=== PATIENT | male | born 1940 | race Caucasian/White ===

== ENCOUNTER → 2016-05-30 | Outpatient (CLI) | payer OTHER ==
[2016-05-30 08:01] LABS: Basophils # (auto) 0 uL; Basophils % (auto) 0.3 % (0.0-2.0); Eosinophils # (auto) 0.2 uL; Eosinophils % (auto) 2.3 % (0.0-7.0); Hematocrit 43.6 % (41.0-53.0); Lymphocytes # (auto) 1.4 uL; Lymphocytes % (auto) 19.1 % (10.0-50.0); Mean Corpuscular Hemoglobin 28.3 pg (28.0-32.0); Mean Corpuscular Hgb Conc. 32.1 g/dL (32.0-36.0); Mean Corpuscular Volume 88.3 fL (80.0-100.0); Mean Platelet Volume 8.3 fL (7.4-10.4); Monocytes # (auto) 0.5 uL; Monocytes % (auto) 7.1 % (0.0-12.0); Neutrophils # (auto) 5.1 uL; Neutrophils % (auto) 71.2 % (37.0-80.0); Platelet Count (auto) 278 10^3/uL (140-450); Red Cell Distribution Width 13.2 % (11.6-16.0); White Blood Cell 7.2 10^3/uL (4.4-10.8)
[2016-05-30 08:16] LABS: Urine Bilirubin Negative (Negative); Urine Blood Negative /uL (Negative); Urine Color Yellow (Yellow); Urine Glucose Normal (Normal); Urine Ketone Negative (Negative); Urine Mucus FEW (None Seen); Urine Nitrite Negative (Negative); Urine RBC 1 /hpf (0 - 3); Urine Urobilinogen Normal (Negative); Urine pH 5.5 (5.0-8.0)
[2016-05-30 08:28] LABS: Albumin 3.4 g/dL (3.4-5.0); BUN/Creatinine Ratio 17.5; Bilirubin, Total 0.3 mg/dL (0.2-1.0); Calcium 8.6 mg/dL (8.5-10.1); Potassium 4.5 mmol/L (3.5-5.1); Total Protein 6.8 g/dL (6.4-8.2)
== END | disposition home or self-care (01) ==
LOC: LAB 07:20
PROVIDERS: ATTEND Internal Medicine
DX: E11.9 Type 2 diabetes mellitus without complications (principal); I10 Essential (primary) hypertension; Z00.00 Encounter for general adult medical examination without abnormal findings; E55.9 Vitamin D deficiency, unspecified
CPT/HCPCS: 36415; 80053; 80061; 81001; 82270; 82306; 84153; 85025

== ENCOUNTER → 2016-08-09 | Outpatient (CLI) | payer OTHER ==
[2016-08-09 07:45] LABS: Urine RBC None Seen /hpf (0 - 3)
[2016-08-09 08:21] LABS: Urine Bilirubin Negative (Negative); Urine Blood Negative /uL (Negative); Urine Color Yellow (Yellow); Urine Glucose Normal (Normal); Urine Ketone Negative (Negative); Urine Nitrite Negative (Negative); Urine Squamous Epithelial Cell FEW /hpf (<5); Urine Urobilinogen Normal (Negative); Urine pH 5.5 (5.0-8.0)
== END | disposition home or self-care (01) ==
LOC: LAB 06:39
PROVIDERS: ATTEND Internal Medicine
DX: N39.0 Urinary tract infection, site not specified (principal); E11.9 Type 2 diabetes mellitus without complications
CPT/HCPCS: 36415; 81001; 82043; 83036; 84153; 84154; 85652; 86141

== ENCOUNTER → 2016-09-06 | Outpatient (CLI) | payer OTHER | END | disposition home or self-care (01) | LOC: LAB 10:51 | DX: K75.9 Inflammatory liver disease, unspecified (principal); M06.9 Rheumatoid arthritis, unspecified; I10 Essential (primary) hypertension; E13.9 Other specified diabetes mellitus without complications | CPT/HCPCS: 36415; 85652; 86141; 86200; 86431; 86704; 86706; 86708; 86803; 86812; 87340 ==

== ENCOUNTER → 2017-03-15 | Outpatient (CLI) | payer OTHER ==
[2017-03-15 11:06] LABS: Basophils # (auto) 0.1 uL; Basophils % (auto) 0.5 % (0.0-2.0); Eosinophils # (auto) 0.1 uL; Eosinophils % (auto) 0.6 % (0.0-7.0); Hematocrit 37.7 % (41.0-53.0); Hemoglobin 13.1 g/dL (13.5-17.5); Lymphocytes # (auto) 0.8 uL; Lymphocytes % (auto) 8.4 % (10.0-50.0); Mean Corpuscular Hemoglobin 32.8 pg (28.0-32.0); Mean Corpuscular Hgb Conc. 34.7 g/dL (32.0-36.0); Mean Corpuscular Volume 94.7 fL (80.0-100.0); Monocytes # (auto) 0.6 uL; Monocytes % (auto) 6.7 % (0.0-12.0); Neutrophils % (auto) 83.8 % (37.0-80.0); Platelet Count (auto) 241 10^3/uL (140-450); Red Cell Distribution Width 13.8 % (11.8-14.3); White Blood Cell 9.6 10^3/uL (4.4-10.8)
[2017-03-15 11:37] LABS: Albumin 3.4 g/dL (3.4-5.0); BUN/Creatinine Ratio 15.9; Bilirubin, Total 0.5 mg/dL (0.2-1.0); Calcium 8.5 mg/dL (8.5-10.1); Potassium 4.1 mmol/L (3.5-5.1); Total Protein 6.3 g/dL (6.4-8.2)
[2017-03-16 07:06] LABS: Prostate Specific Antigen 10.6 ng/mL (0.0-4.0)
[2017-03-16 08:06] LABS: PSA Free 1.7 ng/mL
== END | disposition home or self-care (01) ==
LOC: LAB 09:58
PROVIDERS: ATTEND Internal Medicine
DX: I10 Essential (primary) hypertension (principal); E11.9 Type 2 diabetes mellitus without complications
CPT/HCPCS: 36415; 80053; 83036; 84153; 84154; 85025; 85652; 86141

== ENCOUNTER → 2017-06-21 | Outpatient (CLI) | payer OTHER | END | disposition home or self-care (01) | LOC: LAB 07:32 | PROVIDERS: ATTEND Physician Assistant | DX: N40.1 Benign prostatic hyperplasia with lower urinary tract symptoms (principal) | CPT/HCPCS: 84153 ==

== ENCOUNTER → 2017-09-20 | Outpatient (CLI) | payer OTHER ==
[2017-09-20 08:03] LABS: Basophils # (auto) 0 uL; Basophils % (auto) 0.7 % (0.0-2.0); Eosinophils # (auto) 0.3 uL; Eosinophils % (auto) 4.9 % (0.0-7.0); Hematocrit 41.3 % (41.0-53.0); Hemoglobin 13.8 g/dL (13.5-17.5); Lymphocytes # (auto) 1.1 uL; Lymphocytes % (auto) 18.8 % (10.0-50.0); Mean Corpuscular Hemoglobin 29.8 pg (28.0-32.0); Mean Corpuscular Hgb Conc. 33.3 g/dL (32.0-36.0); Mean Corpuscular Volume 89.3 fL (80.0-100.0); Monocytes # (auto) 0.5 uL; Monocytes % (auto) 8.1 % (0.0-12.0); Neutrophils # (auto) 4.1 uL; Neutrophils % (auto) 67.5 % (37.0-80.0); Platelet Count (auto) 244 10^3/uL (140-450); Red Blood Cells 4.63 10^6/uL (4.5-5.90)
[2017-09-20 08:31] LABS: Albumin 3.5 g/dL (3.4-5.0); Bilirubin, Total 0.4 mg/dL (0.2-1.0); Calcium 8.7 mg/dL (8.5-10.1); Total Protein 6.5 g/dL (6.4-8.2)
== END | disposition home or self-care (01) ==
LOC: LAB 07:41
PROVIDERS: ATTEND Physician Assistant
DX: I10 Essential (primary) hypertension (principal); E11.65 Type 2 diabetes mellitus with hyperglycemia; E78.5 Hyperlipidemia, unspecified; M06.9 Rheumatoid arthritis, unspecified; R97.20 Elevated prostate specific antigen [PSA]
CPT/HCPCS: 36415; 80053; 80061; 83036; 84153; 85025

== ENCOUNTER → 2017-09-27 | Outpatient (CLI) | payer OTHER | END | disposition home or self-care (01) | LOC: LAB 07:05 | PROVIDERS: ATTEND Physician Assistant | DX: R93.8 Abnormal findings on diagnostic imaging of other specified body structures (principal); I10 Essential (primary) hypertension; E78.5 Hyperlipidemia, unspecified; E11.65 Type 2 diabetes mellitus with hyperglycemia | CPT/HCPCS: 36415; 82565; 84520 ==

== ENCOUNTER → 2017-12-27 | Outpatient (CLI) | payer OTHER ==
[~2017-12-27] VITALS: Ht 167.6 cm; Wt 78.0 kg
[~2017-12-27] MED LIST: ADENOSINE 66 MG in GIVE UN-DILUTED 0 ML IV STA
[2017-12-27 10:16] VITALS: BP 137/74
== END | disposition home or self-care (01) ==
LOC: XY 08:37
PROVIDERS: ATTEND Internal Medicine Cardiovascular Disease
DX: I25.6 Silent myocardial ischemia (principal)
CPT/HCPCS: 78452; 93017; A9500; J0153

== ENCOUNTER → 2017-12-28 | Outpatient (CLI) | payer OTHER | END | disposition home or self-care (01) | LOC: XYW 08:23 | PROVIDERS: ATTEND Internal Medicine Cardiovascular Disease | DX: I35.8 Other nonrheumatic aortic valve disorders (principal); I11.9 Hypertensive heart disease without heart failure; E11.9 Type 2 diabetes mellitus without complications; E78.5 Hyperlipidemia, unspecified; M06.9 Rheumatoid arthritis, unspecified | CPT/HCPCS: 93306 ==

== ENCOUNTER 2018-01-18 06:48 | Day surgery (SDC) | payer OTHER ==
[2018-01-15 12:05] LABS: Urine Bacteria NONE SEEN /hpf (None Seen); Urine Blood Negative /uL (Negative); Urine Mucus FEW (None Seen); Urine Specific Gravity 1.031 (1.001-1.035); Urine WBC 1 /hpf (0 - 3)
[2018-01-15 12:18] LABS: Albumin 3.5 g/dL (3.4-5.0); BUN/Creatinine Ratio 17.1; Bilirubin, Total 0.6 mg/dL (0.2-1.0); Calcium 8.5 mg/dL (8.5-10.1); Potassium 3.4 mmol/L (3.5-5.1); Total Protein 6.6 g/dL (6.4-8.2)
[2018-01-15 12:25] LABS: Basophils # (auto) 0 uL; Basophils % (auto) 0.7 % (0.0-2.0); Eosinophils # (auto) 0.2 uL; Eosinophils % (auto) 3.5 % (0.0-7.0); Hematocrit 41.8 % (41.0-53.0); Hemoglobin 14.1 g/dL (13.5-17.5); Lymphocytes % (auto) 16.6 % (10.0-50.0); Mean Corpuscular Hemoglobin 29.6 pg (28.0-32.0); Mean Corpuscular Hgb Conc. 33.7 g/dL (32.0-36.0); Mean Corpuscular Volume 87.9 fL (80.0-100.0); Monocytes # (auto) 0.5 uL; Monocytes % (auto) 7.8 % (0.0-12.0); Neutrophils # (auto) 4.2 uL; Neutrophils % (auto) 71.4 % (37.0-80.0); Nucleated Red Blood Cells % 0.1 %; Platelet Count (auto) 218 10^3/uL (140-450); Red Blood Cells 4.75 10^6/uL (4.5-5.90); Red Cell Distribution Width 13.6 % (11.8-14.3); White Blood Cell 5.8 10^3/uL (4.4-10.8)
[2018-01-15 12:54] LABS: INR 0.91 (0.9-1.15); Partial Thromboplastin Time 27.9 sec (23.78-33.04); Prothrombin Time 9.8 sec (9.27-12.13)
[~2018-01-18] VITALS: Ht 167.6 cm; Wt 80.3 kg
[~2018-01-18 06:48] MED LIST changes: -ADENOSINE 66 MG in GIVE UN-DILUTED 0 ML IV STA; +AMLO10TA12 PO; +ASPI81TA27 PO; +ATOR20TA50 PO; +GLIP-115 PO; +LISI10TA6 PO; +METF-370 PO; +TAMS0.4C36 PO
[2018-01-18] MEDS ORDERED: LIDOCAINE 1% (LOCAL ANESTH.) PF 5ml SDV ONE (07:37)
[2018-01-18] MEDS ORDERED: MIDAZOLAM HCL 1MG/1ML-2 ML VIAL ONE (07:39)
[2018-01-18] MEDS ORDERED: PROPOFOL 10 MG/ML 20 ML IV ONE (07:40)
[2018-01-18] MEDS ORDERED: CIPROFLOXACIN 400MG/200ML 200 ML IV ONE (08:51)
[2018-01-18] MEDS ORDERED: fentaNYL CITRATE 100 MCG/2 ML VL ONE (09:01)
[2018-01-18] MEDS ORDERED: ACCU-CHEK COMFORT CURVE STRIP VI ONE (09:30)
[2018-01-18] MEDS ORDERED: HYDROmorphone HCL 2 MG/ML VL IV PRN (09:30)
[2018-01-18] MEDS ORDERED: ONDANSETRON HCL 4 MG/2 ML VIAL IV ONE (09:30)
[2018-01-18] MEDS ORDERED: NALOXONE HCL 0.4 MG/ML VIAL IV PRN (09:30)
[2018-01-18 09:49] VITALS: BP 126/74
== END 2018-01-18 09:55 | disposition home or self-care (01) ==
LOC: SUR 06:48
PROVIDERS: ATTEND Urology
DX: R97.20 Elevated prostate specific antigen [PSA] (principal); N40.1 Benign prostatic hyperplasia with lower urinary tract symptoms; E78.00 Pure hypercholesterolemia, unspecified; M19.90 Unspecified osteoarthritis, unspecified site; I11.0 Hypertensive heart disease with heart failure; Z79.82 Long term (current) use of aspirin; Z79.84 Long term (current) use of oral hypoglycemic drugs; Z79.899 Other long term (current) drug therapy; Z98.890 Other specified postprocedural states
CPT/HCPCS: 36415; 55706; 80053; 81001; 82962; 85025; 85610; 85730; J0744; J2250; J2704; J3010

== ENCOUNTER → 2018-06-26 | Outpatient (CLI) | payer OTHER ==
[2018-06-26 07:28] LABS: Urine WBC None Seen /hpf (0 - 3)
[2018-06-26 07:41] LABS: Basophils # (auto) 0 uL; Basophils % (auto) 0.6 % (0.0-2.0); Eosinophils # (auto) 0.2 uL; Eosinophils % (auto) 3.1 % (0.0-7.0); Hematocrit 40.9 % (41.0-53.0); Lymphocytes # (auto) 1.2 uL; Lymphocytes % (auto) 21.2 % (10.0-50.0); Mean Corpuscular Hemoglobin 30.1 pg (28.0-32.0); Mean Corpuscular Hgb Conc. 34.2 g/dL (32.0-36.0); Monocytes # (auto) 0.5 uL; Monocytes % (auto) 8.7 % (0.0-12.0); Neutrophils # (auto) 3.9 uL; Neutrophils % (auto) 66.4 % (37.0-80.0); Nucleated Red Blood Cells % 0.1 %; Platelet Count (auto) 200 10^3/uL (140-450); Red Blood Cells 4.65 10^6/uL (4.5-5.90); Red Cell Distribution Width 13.5 % (11.8-14.3); White Blood Cell 5.8 10^3/uL (4.4-10.8)
[2018-06-26 07:54] LABS: Urine Bacteria NONE SEEN /hpf (None Seen); Urine Blood Negative /uL (Negative); Urine Specific Gravity 1.021 (1.001-1.035)
[2018-06-26 08:22] LABS: Potassium 4.6 mmol/L (3.5-5.1)
[2018-06-26 08:31] LABS: Albumin 3.3 g/dL (3.4-5.0); BUN/Creatinine Ratio 17.1; Bilirubin, Total 0.4 mg/dL (0.2-1.0); Calcium 8.4 mg/dL (8.5-10.1); Total Protein 6.2 g/dL (6.4-8.2)
== END | disposition home or self-care (01) ==
LOC: LAB 07:15
PROVIDERS: ATTEND Physician Assistant
DX: Z12.5 Encounter for screening for malignant neoplasm of prostate (principal); E78.5 Hyperlipidemia, unspecified; I10 Essential (primary) hypertension; E11.8 Type 2 diabetes mellitus with unspecified complications; D64.9 Anemia, unspecified
CPT/HCPCS: 36415; 80053; 80061; 81001; 83036; 84153; 84154; 85025

== ENCOUNTER → 2019-04-08 | Outpatient (CLI) | payer OTHER ==
[~2019-04-08] MED LIST changes: -AMLO10TA12 PO; +AMLO10TA13 PO; +ASPI-404 PO; -ASPI81TA27 PO; -GLIP-115 PO; +GLIP5TAB12 PO
[2019-04-08 12:01] LABS: Urine Bacteria NONE SEEN /hpf (None Seen); Urine Blood Negative /uL (Negative); Urine Mucus FEW (None Seen); Urine Specific Gravity 1.019 (1.001-1.035); Urine WBC 1 /hpf (0 - 3)
== END | disposition home or self-care (01) ==
LOC: LAB 10:35
PROVIDERS: ATTEND Nurse Practitioner Family
DX: N39.0 Urinary tract infection, site not specified (principal)
CPT/HCPCS: 81001; 87086

== ENCOUNTER 2019-04-28 06:59 | Emergency (ER) | payer OTHER ==
[~2019-04-28] VITALS: Ht 167.6 cm; Wt 81.6 kg
[2019-04-28 08:15] LABS: Basophils # (auto) 0 uL; Basophils % (auto) 0.7 % (0.0-2.0); Eosinophils # (auto) 0.2 uL; Eosinophils % (auto) 3.3 % (0.0-7.0); Hematocrit 36.5 % (41.0-53.0); Hemoglobin 12.6 g/dL (13.5-17.5); Lymphocytes # (auto) 0.8 uL; Lymphocytes % (auto) 12.3 % (10.0-50.0); Mean Corpuscular Hemoglobin 30.2 pg (28.0-32.0); Mean Corpuscular Hgb Conc. 34.5 g/dL (32.0-36.0); Mean Corpuscular Volume 87.7 fL (80.0-100.0); Monocytes # (auto) 0.5 uL; Monocytes % (auto) 8.1 % (0.0-12.0); Neutrophils # (auto) 4.9 uL; Neutrophils % (auto) 75.6 % (37.0-80.0); Platelet Count (auto) 212 10^3/uL (140-450); Red Blood Cells 4.16 10^6/uL (4.5-5.90); Red Cell Distribution Width 13.5 % (11.8-14.3); White Blood Cell 6.5 10^3/uL (4.4-10.8)
[2019-04-28 08:17] LABS: Urine Bacteria NONE SEEN /hpf (None Seen); Urine Blood Negative /uL (Negative); Urine Specific Gravity 1.009 (1.001-1.035); Urine WBC 2 /hpf (0 - 3)
[2019-04-28 08:33] LABS: Alanine Aminotransferase 27 U/L (16-61); Albumin 3.1 g/dL (3.4-5.0); Anion Gap 11 (5-15); Aspartate Aminotransferase 17 U/L (15-37); BUN/Creatinine Ratio 13.4; Blood Urea Nitrogen 20 mg/dL (7-18); Calcium 8.4 mg/dL (8.5-10.1); Carbon Dioxide 24 mmol/L (21-32); Chloride 111 mmol/L (98-107); GFR African American 59 mL/min; GFR Non-African American 49 mL/min; Glucose 173 mg/dL (74-106); Potassium 3.2 mmol/L (3.5-5.1); Sodium 146 mmol/L (136-145)
[2019-04-28 08:38] LABS: Alkaline Phosphatase 91 U/L (45-117); Bilirubin, Total 0.4 mg/dL (0.2-1.0); Total Protein 6.4 g/dL (6.4-8.2)
[2019-04-28] MEDS ORDERED: POTASSIUM EFFERVESENT TAB 25 MEQ PO ONE (09:30)
[2019-04-28] MEDS ORDERED: FUROSEMIDE 20 MG TAB PO ONE (09:30)
[2019-04-28 09:38] VITALS: BP 154/70
== END 2019-04-28 09:33 | disposition home or self-care (01) ==
LOC: ER 06:59
DX: E11.9 Type 2 diabetes mellitus without complications (principal); I10 Essential (primary) hypertension; E87.6 Hypokalemia; M79.89 Other specified soft tissue disorders
CPT/HCPCS: 36415; 71045; 80053; 81001; 83880; 84484; 85025

== ENCOUNTER → 2019-06-20 | Outpatient (CLI) | payer OTHER ==
[~2019-06-20] MED LIST changes: -AMLO10TA13 PO; -ASPI-404 PO; +FINA5TAB4 PO; +GLIP10TA9 PO; -GLIP5TAB12 PO; +MET25T PO; -TAMS0.4C36 PO
[2019-06-20 09:06] LABS: Urine Bacteria FEW /hpf (None Seen); Urine Blood Negative /uL (Negative); Urine Mucus FEW (None Seen); Urine Specific Gravity 1.012 (1.001-1.035); Urine WBC 8 /hpf (0 - 3)
== END | disposition home or self-care (01) ==
LOC: LAB 08:39
PROVIDERS: ATTEND Internal Medicine
DX: N39.0 Urinary tract infection, site not specified (principal)
CPT/HCPCS: 81001; 87086

== ENCOUNTER 2019-07-03 06:17 | Inpatient (IN) | payer OTHER ==
[2019-07-01 10:53] LABS: Basophils # (auto) 0 10 ^3/uL (0-0.2); Basophils % (auto) 0.9 % (0.0-2.0); Eosinophils # (auto) 0.2 10 ^3/uL (0-0.8); Eosinophils % (auto) 4.1 % (0.0-7.0); Hematocrit 33.5 % (41.0-53.0); Hemoglobin 11.6 g/dL (13.5-17.5); Lymphocytes # (auto) 0.9 10 ^3/uL (0.4-5.4); Lymphocytes % (auto) 17.7 % (10.0-50.0); Mean Corpuscular Hemoglobin 30.1 pg (28.0-32.0); Mean Corpuscular Hgb Conc. 34.5 g/dL (32.0-36.0); Mean Corpuscular Volume 87.3 fL (80.0-100.0); Monocytes # (auto) 0.4 10 ^3/uL (0-1.3); Monocytes % (auto) 7.5 % (0.0-12.0); Neutrophils # (auto) 3.5 10 ^3/uL (1.6-8.6); Neutrophils % (auto) 69.8 % (37.0-80.0); Platelet Count (auto) 228 10^3/uL (140-450); Red Blood Cells 3.84 10^6/uL (4.5-5.90); Red Cell Distribution Width 14.2 % (11.8-14.3); White Blood Cell 5.1 10^3/uL (4.4-10.8)
[2019-07-01 11:04] LABS: Albumin 2.9 g/dL (3.4-5.0); Calcium 8.5 mg/dL (8.5-10.1)
[2019-07-01 11:08] LABS: BUN/Creatinine Ratio 15.1; Bilirubin, Total 0.2 mg/dL (0.2-1.0); Total Protein 6.3 g/dL (6.4-8.2)
[2019-07-01 11:10] LABS: INR 0.97 (0.9-1.15); Partial Thromboplastin Time 26.5 sec (23.64-32.05)
[2019-07-01 12:45] LABS: Urine Bacteria MANY /hpf (None Seen); Urine Blood 1+ /uL (Negative); Urine Mucus FEW (None Seen); Urine Specific Gravity 1.018 (1.001-1.035); Urine WBC 162 /hpf (0 - 3); Urine WBC Clumps PRESENT /hpf (None Seen)
[~2019-07-03] VITALS: Ht 167.6 cm; Wt 70.8 kg
[2019-07-03] VITALS (44 sets, daily range): BP systolic 18–177; BP diastolic 8–74
[2019-07-03] MEDS ORDERED: NEOMYCIN-BACITRACIN-POLYM 15GM TOP OINT TOP ONE (06:22)
[2019-07-03] MEDS ORDERED: PAPAVERINE HCL 60 MG/2 ML 2ML VIAL ONE ×2 (06:22)
[2019-07-03] MEDS ORDERED: HEPARIN SODIUM (PORCINE) 5000 UNITS/ML 1ML VIAL ONE (06:22)
[2019-07-03] MEDS ORDERED: NITROGLYCERIN 50MG/250ML 250 ML IV ONE (06:24)
[2019-07-03] MEDS ORDERED: VANCOMYCIN HCL 1000 MG VL ONE ×2 (06:24→12:41)
[2019-07-03] MEDS ORDERED: HEPARIN 1,000 UNITS/ml 1ML VIAL ONE ×2 (06:25→09:22)
[2019-07-03] MEDS ORDERED: TRANEXAMIC ACID 1,000 mg/10ml INJ VIAL IV ONE (07:00)
[2019-07-03] MEDS ORDERED: AMINOCAPROIC ACID 10 GM in SODIUM CHL 0.9% 100 ML IV ONE (07:00)
[2019-07-03] MEDS ORDERED: TRANEXAMIC ACID 1,000 MG in SODIUM CHL 0.9% 100 ML IV ONE (07:00)
[2019-07-03] MEDS ORDERED: NOREPINEPHRINE 8 MG/250ML KIT 250 ML IV ONE (07:00)
[2019-07-03] MEDS ORDERED: PHENYLEPHRINE INJ 20 MG in SODIUM CHL 0.9% 250 ML IV ONE (07:00)
[2019-07-03] MEDS ORDERED: HEPARIN 30000 UNITS in SODIUM CHLORIDE 0.9% 1000 ML IV ONE (07:00)
[2019-07-03] MEDS ORDERED: InsuLIN R (HUMAN) 100 UNITS in SODIUM CHL 0.9% 99 ML IV ONE (07:00)
[2019-07-03] MEDS ORDERED: AMINOCAPROIC ACID 5 GM in SODIUM CHL 0.9% 250 ML IV ONE (07:00)
[2019-07-03] MEDS ORDERED: EPINEPHrine HCL 4 MG in D5W 5% 250 ML IV ONE (07:00)
[2019-07-03] MEDS ORDERED: ROCURONIUM 10MG/ML 10ML VIAL IV ONE (07:15)
[2019-07-03] MEDS ORDERED: PROPOFOL 10 MG/ML 20 ML IV ONE ×2 (07:15→09:22)
[2019-07-03] MEDS ORDERED: PHENYLEPHRINE HCL 10 MG/ML VL ONE (07:15)
[2019-07-03] MEDS ORDERED: BACITRACIN INJ 50000 UNIT VIAL ONE ×2 (09:19→10:35)
[2019-07-03] MEDS ORDERED: fentaNYL CITRATE 100 MCG/2 ML VL ONE ×2 (09:20→13:16)
[2019-07-03] MEDS ORDERED: fentaNYL CITRATE 5 ML ONE (09:26)
[2019-07-03] MEDS ORDERED: ALBUMIN 25% 300 ML IV ONE (09:36)
[2019-07-03] MEDS ORDERED: MANNITOL 20 % (20GM/100ML) 500 ML IV ONE (09:36)
[2019-07-03] MEDS ORDERED: PLASMA-LYTE A pH7.4 4,000 ML INJ ONE (09:36)
[2019-07-03] MEDS ORDERED: PROTAMINE SULFATE 250 MG/25 ML VL IV ONE (12:41)
[2019-07-03 13:27] LABS: Basophils # (auto) 0 10 ^3/uL (0-0.2); Basophils % (auto) 0.3 % (0.0-2.0); Eosinophils # (auto) 0.1 10 ^3/uL (0-0.8); Eosinophils % (auto) 1.1 % (0.0-7.0); Hematocrit 26.2 % (41.0-53.0); Hemoglobin 8.9 g/dL (13.5-17.5); Lymphocytes # (auto) 0.8 10 ^3/uL (0.4-5.4); Lymphocytes % (auto) 6.8 % (10.0-50.0); Mean Corpuscular Hemoglobin 29.5 pg (28.0-32.0); Mean Corpuscular Volume 86.8 fL (80.0-100.0); Monocytes # (auto) 0.3 10 ^3/uL (0-1.3); Monocytes % (auto) 2.5 % (0.0-12.0); Neutrophils # (auto) 9.9 10 ^3/uL (1.6-8.6); Neutrophils % (auto) 89.3 % (37.0-80.0); Platelet Count (auto) 159 10^3/uL (140-450); Red Blood Cells 3.02 10^6/uL (4.5-5.90); Red Cell Distribution Width 14.3 % (11.8-14.3); White Blood Cell 11.1 10^3/uL (4.4-10.8)
[2019-07-03 13:44] LABS: Albumin 3.3 g/dL (3.4-5.0); BUN/Creatinine Ratio 16.7; Calcium 8.3 mg/dL (8.5-10.1); Potassium 3.9 mmol/L (3.5-5.1)
[2019-07-03 13:45] LABS: INR 1.3 (0.9-1.15)
[2019-07-03 13:47] LABS: Bilirubin, Total 0.8 mg/dL (0.2-1.0); Total Protein 5.4 g/dL (6.4-8.2)
[2019-07-03] MEDS: PHENYLEPHRINE IV 250 ML IV SCH (13:53)
[2019-07-03] MEDS ORDERED: INSULIN DRIP 100 UNIT/100ML 100 ML IV SCH (13:53)
[2019-07-03] MEDS ORDERED: NITROGLYCERIN 50MG/250ML 250 ML IV SCH (13:53)
[2019-07-03] MEDS: SODIUM CHLORIDE 0.9% 500 ML IV SCH (13:53)
[2019-07-03] MEDS ORDERED: SODIUM CHLORIDE 0.9% 200 ML IV PRN (13:53)
[2019-07-03] MEDS ORDERED: PROPOFOL 100 ML IV SCH (13:53)
[2019-07-03] MEDS: MILRINONE 20MG/100ML 100 ML IV SCH (13:53)
[2019-07-03] MEDS ORDERED: AMIODARONE HCL 150 MG in D5W 5% 100 ML IV ONE (14:00)
[2019-07-03] MEDS ORDERED: MORPHINE SULFATE 4 MG/ML SYR/VIAL IV PRN (14:00)
[2019-07-03] MEDS ORDERED: fentaNYL CITRATE 100 MCG/2 ML VL IV PRN (14:00)
[2019-07-03] MEDS ORDERED: VANCOMYCIN 1GM/250ML 250 ML IV SCH (14:00)
[2019-07-03] MEDS: ACCU-CHEK COMFORT CURVE STRIP VI SCH ×10 (14:00→23:20)
[2019-07-03] MEDS ORDERED: ONDANSETRON HCL 4 MG/2 ML VIAL IV PRN (14:00)
[2019-07-03] MEDS ORDERED: SODIUM BICARBONATE 8.4% INJ 50ML SYRINGE IV PRN (14:00)
[2019-07-03] MEDS ORDERED: DEXTROSE (50%) 50ML SYRG IV PRN (14:00)
[2019-07-03] MEDS ORDERED: MAGNESIUM SULFATE 1GM/100ML 100 ML IV PRN (14:00)
[2019-07-03] MEDS ORDERED: AMIODARONE HCL 900 MG in DEXTROSE 500 ML IV SCH (14:03)
[2019-07-03] MEDS ORDERED: PROPOFOL 100 ML IV ONE (14:24)
--- NOTE | 2019-07-03 14:38 | NUR ---
Pt. arrived from [facility] accompanied by cardiothoracic team on hemodynamic monitoring. Report received from anesthesiologist Dr. Adame and Dr. Flowers. Surgery: Cabg x 3- . Endoscopic Vein Adrian to right and left Leg. Lines: PA catheter around 53 cm at the Hub of the Dual lumen Cordis to the right internal jugular Yary to right brachial artery. right femoral yary present, not currently in use Pacer wires: v wires Chest Tube:left and mediastinal Mcguire: draining pale yellow urine (coude placed outpatient by Dr Singh) ET tube:8.0 , 22 lip line Gtts: ivf, propofol, insulin Hemodynamics: CO/CI: 4.1/2.3 HR: 97 Assisted BP: 78/35 MAP: 46 CVP: 0 PAP: 19/8 SVR: SVO2: 65% SPO2: 100% Immediated Post- Op recovery Pt arrived to ICU hemodynamically stable
[2019-07-03] MEDS: ALBUMIN 5% 250 ML IV SCH ×2 (15:00→19:00)
[2019-07-03] MEDS: NOREPINEPHRINE 8 MG/250ML KIT 250 ML IV SCH (15:00)
--- NOTE | 2019-07-03 15:25 | NUR ---
SPOKE WITH DR DAVIS UPDATED ON RECENT ABG RESULTS AND CURRENT HEMODYNAMICS. RECEIVED ORDERS FOR CPAP TRIAL WHEN PATIENT IS AWAKE.
[2019-07-03 15:32] LABS: Basophils # (auto) 0 10 ^3/uL (0-0.2); Basophils % (auto) 0.3 % (0.0-2.0); Eosinophils # (auto) 0 10 ^3/uL (0-0.8); Eosinophils % (auto) 0.3 % (0.0-7.0); Hematocrit 24.2 % (41.0-53.0); Hemoglobin 8.3 g/dL (13.5-17.5); Lymphocytes # (auto) 0.8 10 ^3/uL (0.4-5.4); Mean Corpuscular Hemoglobin 29.6 pg (28.0-32.0); Mean Corpuscular Hgb Conc. 34.2 g/dL (32.0-36.0); Mean Corpuscular Volume 86.5 fL (80.0-100.0); Monocytes # (auto) 0.6 10 ^3/uL (0-1.3); Monocytes % (auto) 5.4 % (0.0-12.0); Neutrophils # (auto) 10.2 10 ^3/uL (1.6-8.6); Platelet Count (auto) 233 10^3/uL (140-450); Red Cell Distribution Width 14.1 % (11.8-14.3); White Blood Cell 11.7 10^3/uL (4.4-10.8)
--- NOTE | 2019-07-03 15:44 | NUR ---
PATIENTS WEI AT BEDSIDE UPDATED ON PLAN OF CARE, ADDRESSED CONCERNS
[2019-07-03 15:49] LABS: Albumin 3.9 g/dL (3.4-5.0); BUN/Creatinine Ratio 17.3; Calcium 8.1 mg/dL (8.5-10.1); Magnesium 3.4 mg/dL (1.6-2.6); Potassium 3.8 mmol/L (3.5-5.1)
[2019-07-03 15:51] LABS: Bilirubin, Total 1.4 mg/dL (0.2-1.0); Phosphorus 1.4 mg/dL (2.5-4.90); Total Protein 5.7 g/dL (6.4-8.2)
[2019-07-03 15:52] LABS: INR 1.16 (0.9-1.15); Partial Thromboplastin Time 27.4 sec (23.64-32.05)
[2019-07-03] MEDS ORDERED: HEPARIN SODIUM (PORCINE) 5000 UNITS/ML 1ML VIAL SC ONE (15:59)
[2019-07-03] MEDS ORDERED: CALCIUM CHLOR(10%) 100MG/ML 10ML SYRINGE IV ONE (15:59)
[2019-07-03] MEDS ORDERED: ADENOSINE 6 MG/2 ML INJ IV ONE (15:59)
[2019-07-03] MEDS ORDERED: PHYTONADIONE (VIT K)10 MG/ML 1ML VIAL SUBCUT ONE (16:00)
[2019-07-03] MEDS: ceFAZolin 1GM 2 GM in D5W 5% 100 ML IV SCH (16:00)
[2019-07-03] MEDS ORDERED: phytonadione 10 MG in SODIUM CHL 0.9% 50 ML IV ONE (16:00)
--- NOTE | 2019-07-03 16:04 | NUR ---
PATIENT PLACED ON CPAP BY RESPIRATORY THERAPIST ORDERED RN AT BEDSIDE TO MONITOR CLOSELY
[2019-07-03] MEDS ORDERED: MAGNESIUM SULF 50% 40 MEQ/10 ML VL IV ONE (16:17)
[2019-07-03] MEDS ORDERED: POTASSIUM CHL 2MEQ/ML 20ML IV ONE (16:17)
[2019-07-03] MEDS ORDERED: PHENYLEPHRINE HCL 10 MG/ML VL IV ONE (16:17)
[2019-07-03] MEDS ORDERED: SODIUM BICARBONATE 8.4 % INJ 50ML VIAL IV ONE (16:17)
[2019-07-03] MEDS: POTASSIUM CHL 20MEQ/100ML 100 ML IV PRN ×4 (16:45→23:14)
--- NOTE | 2019-07-03 16:50 | NUR ---
EXTUBATE RECEIVED ORDER TO EXTUBATE BY DR DAVIS PATIENT PLACED ON COOL MIST MASK BY RESPIRATORY THERAPIST. NO STRIDOR NOTED, PATIENTS VITALS REMAIN STABLE. CLOSELY MONITORED BY BEDSIDE RN
--- NOTE | 2019-07-03 17:10 | NUR ---
DR MELENDEZ AT BEDSIDE UPDATED ON PATIENTS STATUS, NO NEW ORDERS
[2019-07-03] MEDS: MORPHINE SULFATE 4 MG/ML SYR/VIAL IV PRN (17:28)
[2019-07-03] MEDS: ALBUTEROL SULF 2.5 MG/0.5ML(0.5%) NEB SOLN NEB SCH ×3 (18:00→21:54)
[2019-07-03] MEDS: IPRATROPIUM BROM 0.5 MG/2.5ML INH SOL NEB SCH ×3 (18:00→21:54)
--- NOTE | 2019-07-03 18:25 | NUR ---
DR Lourdes DOLAN AT BEDSIDE DISCUSSED PATIENTS STATUS AND PLAN OF CARE
--- NOTE | 2019-07-03 18:58 | NUR ---
RT NOTE PT PLACED ON BIPAP [id number] WITH MEDIUM MASK ON STATED SETTINGS. BIPAP IS PLUGGED TO RED OUTLET. ALARMS ARE ON AND AUDIBLE TO NURSING. AMBU BAG AT BEDSIDE AND CONNECTED TO O2. LEAK TEST DONE AND PASSED PRIOR TO PLACEMENT. HHN GIVEN INLINE WITH 2.5 MG ALBUTEROL AND 0.5 MG ATROVENT WITHOUT ADVERSE REACTION NOTED. BILATERAL BS ARE CLEAR/DIMINISHED. PT HAS LEFT AND MEDIASTINAL CHEST TUBES NOTED. RIGHT BRACHIAL ART LINE ALSO NOTED. DRIPS NOTED BY RN. TOMÁS JENSEN AT BEDSIDE. HEMODYNAMICS: BP 93/44, CVP 4, PAS 22/14, SVO2 51, CI 2.2, CO 3.9, TEMP 98.3 Addendum: 07/03/19 at 1859 by Marnie Hedrick RT Amended: Links added.
--- NOTE | 2019-07-03 19:35 | NUR ---
FFP STARTED PER ORDER
--- NOTE | 2019-07-03 19:52 | NUR ---
RT NOTE PT WAS CHANGED TO NASAL CANNULA AT 3L. CONT ORDERED
--- NOTE | 2019-07-03 20:00 | NUR ---
OPEN ASSUMED CARE OF MALE PT S/P CABG TODAY. PT A&O X 3. PT ON 2L N/C. SINUS TACH ON LEAN SPECIALIST. R. IJ SWAN IN PLACE APPROX 53 CM AT HUB. LEVOPHED GTT 3 MCG/MIN INFUSING. R. BRACHIAL JAZMYNE IN PLACE. GOOD WAVEFORMS OBSERVED. EPICARDIAL V PACER WIRES CONNECTED TO EXTERNAL GENERATOR ON STANDBY. 22 G IV TO L. WRIST WITH INSULIN GTT INFUSING. STERNAL INCISION WITH CDI AQUACEL DRESSING. L. PLEURAL AND MEDIASTINAL CHEST TUBES IN PLACE DRAINING BLOODY DRAINAGE TO ATRIUM COLLECTION UNIT SECURED TO FLOOR. UNIT TO 20 CM SUCTION. NO CREPITUS OR AIR LEAK OBSERVED. R. FEM JAZMYNE IN PLACE. IBRAHIM TO GRAVITY DRAINING CLEAR YELLOW URINE. DEA WRAP IN PLACE TO DANISHA LOWER EXT'S OVER ENDOSCOPIC HARVEST SITES. PT DENIES PAIN AT THIS TIME. BED IN LOWEST LOCKED POSITION. HOB ELEVATED 45 DEGREES. CALL DURANT IN REACH. PT IN FULL VIEW OF RN STATION WILL CONTINUE TO MONITOR.
[2019-07-03] MEDS: AMIODARONE HCL 900 MG in DEXTROSE 500 ML IV SCH (20:03)
--- NOTE | 2019-07-03 20:08 | NUR ---
FAMILY CALL PT CALLED UNIT FOR UPDATE ON PT CONDITION. AFTER PASSWORD GIVEN UPDATE PROVIDED. ALL QUESTIONS AND CONCERNS ADDRESSED.
[2019-07-03 20:31] LABS: Basophils # (auto) 0 10 ^3/uL (0-0.2); Eosinophils # (auto) 0 10 ^3/uL (0-0.8); Lymphocytes # (auto) 0.5 10 ^3/uL (0.4-5.4); Monocytes # (auto) 0.1 10 ^3/uL (0-1.3); Neutrophils # (auto) 11.5 10 ^3/uL (1.6-8.6); Neutrophils % (auto) 94.5 % (37.0-80.0)
[2019-07-03 20:33] LABS: Basophils % (auto) 0.2 % (0.0-2.0); Hematocrit 19.5 % (41.0-53.0); Lymphocytes % (auto) 4.5 % (10.0-50.0); Mean Corpuscular Hemoglobin 28.9 pg (28.0-32.0); Mean Corpuscular Volume 87.6 fL (80.0-100.0); Monocytes % (auto) 0.8 % (0.0-12.0); Platelet Count (auto) 253 10^3/uL (140-450); Red Blood Cells 2.22 10^6/uL (4.5-5.90); Red Cell Distribution Width 14.5 % (11.8-14.3); White Blood Cell 12.1 10^3/uL (4.4-10.8)
--- NOTE | 2019-07-03 20:35 | NUR ---
FFP UNIT FINISHED NO S/S OF REACTION
[2019-07-03 20:36] LABS: Hemoglobin 6.4 g/dL (13.5-17.5)
--- NOTE | 2019-07-03 21:00 | NUR ---
2ND FFP STARTED
[2019-07-03 21:04] LABS: BUN/Creatinine Ratio 13.3; Calcium 7.9 mg/dL (8.5-10.1); Magnesium 3.2 mg/dL (1.6-2.6); Potassium 3.9 mmol/L (3.5-5.1)
--- NOTE | 2019-07-03 21:15 | NUR ---
CT OUTPUT/MD PAGE PT CT OUTPUT GREATER THAN 150 ML X 3 HRS. MD DAVIS PAGED. UPDATED MD REGARDING CT OUTPUTS AND CURRENT HGB LEVELS. ORDERS RECEIVED.
--- NOTE | 2019-07-03 21:35 | NUR ---
2ND FFP FINISHED TRANSFUSING. NO S/S OF ADVERSE REACTION.
--- NOTE | 2019-07-03 21:55 | NUR ---
RT NOTE PT PLACED ON BIPAP [id number] WITH MEDIUM MASK ON STATED SETTINGS. BIPAP IS PLUGGED TO RED OUTLET. ALARMS ARE ON AND AUDIBLE TO NURSING. AMBU BAG AT BEDSIDE AND CONNECTED TO O2. LEAK TEST DONE AND PASSED PRIOR TO PLACEMENT. HHN GIVEN INLINE WITH 2.5 MG ALBUTEROL AND 0.5 MG ATROVENT WITHOUT ADVERSE REACTION NOTED. BILATERAL BS ARE CLEAR/DIMINISHED. PT HAS LEFT AND MEDIASTINAL CHEST TUBES NOTED. RIGHT BRACHIAL ART LINE ALSO NOTED. DRIPS NOTED BY RN. HEMODYNAMICS: BP 157/62, CVP 4, PAS 26/14, SVO2 66, CI 3.5, CO 6.4, TEMP 98.9 Addendum: 07/03/19 at 2201 by Marnie Hedrick RT Amended: Links added.
[2019-07-03] MEDS: CHLORHEXIDINE 0.12% ORAL rinse 473ML MT SCH (22:00)
--- NOTE | 2019-07-03 22:00 | NUR ---
PAIN PT C/O PAIN 7/10 TO STERNAL INCISION. MEDICATED WITH MORPHINE SIVP PER ORDER.
--- NOTE | 2019-07-03 22:06 | NUR ---
TRANSFUSION RECORD ERROR THIS SENIOR PRODUCT ANALYST ENDED PRBC UNIT [id number] AT 2135 ON TRANSFUSION RECORD. ERROR. UNIT STILL TRANSFUSING.
--- NOTE | 2019-07-03 23:00 | NUR ---
1ST PRBC FINISHED NO S/S OF ADVERSE REACTION.
--- NOTE | 2019-07-03 23:30 | NUR ---
1ST UNIT PLATELETS STARTED
[2019-07-04] VITALS (80 sets, daily range): BP systolic 21–175; BP diastolic 9–101
--- NOTE | 2019-07-04 | NUR ---
PAIN PT C/O PAIN 7/10 TO STERNAL INCISION. MEDICATED WITH FENTANYL SIVP PER ORDER. SEE EMAR.
[2019-07-04] MEDS: ceFAZolin 1GM 2 GM in D5W 5% 100 ML IV SCH ×4 (00:20→22:21)
[2019-07-04] MEDS: ACCU-CHEK COMFORT CURVE STRIP VI SCH ×13 (01:00→23:15)
[2019-07-04] MEDS: VANCOMYCIN 1GM/250ML 250 ML IV SCH ×2 (01:20→13:16)
[2019-07-04] MEDS: MILRINONE 20MG/100ML 100 ML IV SCH ×2 (02:18→14:43)
[2019-07-04] MEDS: MORPHINE SULFATE 4 MG/ML SYR/VIAL IV PRN (02:22)
[2019-07-04 04:30] LABS: Basophils # (auto) 0 10 ^3/uL (0-0.2); Basophils % (auto) 0.1 % (0.0-2.0); Eosinophils # (auto) 0 10 ^3/uL (0-0.8); Hematocrit 22.6 % (41.0-53.0); Hemoglobin 7.7 g/dL (13.5-17.5); Lymphocytes # (auto) 0.6 10 ^3/uL (0.4-5.4); Lymphocytes % (auto) 6.2 % (10.0-50.0); Mean Corpuscular Hemoglobin 30.3 pg (28.0-32.0); Mean Corpuscular Hgb Conc. 34.2 g/dL (32.0-36.0); Mean Corpuscular Volume 88.5 fL (80.0-100.0); Monocytes # (auto) 0.8 10 ^3/uL (0-1.3); Monocytes % (auto) 8.4 % (0.0-12.0); Neutrophils # (auto) 8.4 10 ^3/uL (1.6-8.6); Neutrophils % (auto) 85.3 % (37.0-80.0); Platelet Count (auto) 212 10^3/uL (140-450); Red Blood Cells 2.55 10^6/uL (4.5-5.90); White Blood Cell 9.9 10^3/uL (4.4-10.8)
[2019-07-04 04:48] LABS: BUN/Creatinine Ratio 15.9; Calcium 7.8 mg/dL (8.5-10.1); Phosphorus 1.9 mg/dL (2.5-4.90)
[2019-07-04 04:55] LABS: INR 1.04 (0.9-1.15); Partial Thromboplastin Time 25.5 sec (23.64-32.05)
[2019-07-04] MEDS: ALBUMIN 5% 250 ML IV SCH ×4 (05:00→15:00)
--- NOTE | 2019-07-04 05:30 | NUR ---
MD CALL DR DAVIS CALLED UNIT. UPDATED MD REGARDING AM LABS, CHEST TUBE OUTPUT, AND CURRENT GTT'S. ORDERS RECEIVED.
[2019-07-04] MEDS ORDERED: FUROSEMIDE 20 MG/2 ML VIAL IV ONE (05:45)
[2019-07-04] MEDS: METOPROLOL TARTRATE 25 MG TAB PO SCH ×3 (06:00→23:12)
[2019-07-04] MEDS ORDERED: METOPROLOL TARTRATE 25 MG TAB ONE (06:04)
[2019-07-04] MEDS ORDERED: FUROSEMIDE 20 MG/2 ML VIAL ONE (06:04)
[2019-07-04] MEDS: IPRATROPIUM BROM 0.5 MG/2.5ML INH SOL NEB SCH ×5 (06:14→22:01)
[2019-07-04] MEDS: ALBUTEROL SULF 2.5 MG/0.5ML(0.5%) NEB SOLN NEB SCH ×5 (06:14→22:01)
[2019-07-04] MEDS ORDERED: DEXTROSE (50%) 50ML SYRG IV PRN (07:45)
[2019-07-04] MEDS ORDERED: HYDROcodone-ACET 5/325MG TAB PO PRN (07:45)
--- NOTE | 2019-07-04 08:00 | NUR ---
PATIENTS WEI CALLED PROVIDED PASSWORD, UPDATED ON PATIENTS CURRENT STATUS AND PLAN OF CARE
[2019-07-04] MEDS: InsuLIN REG 1unit/0.01ml Soln (100units/ml) SC SCH ×5 (08:13→23:15)
--- NOTE | 2019-07-04 08:20 | NUR ---
DR DAVIS AT BEDSIDE DISCUSSED PLAN OF CARE WITH PATIENT, NEW ORDERS PLACED
[2019-07-04] MEDS: PANTOPRAZOLE 40 MG/10 ML VIAL INJ IV SCH (09:47)
[2019-07-04] MEDS: LISINOPRIL 10 MG TAB PO SCH (09:48)
[2019-07-04] MEDS: NITROGLYCERIN 0.4MG/HR TOPICAL PATCH TD SCH (09:48)
[2019-07-04] MEDS: CHLORHEXIDINE 0.12% ORAL rinse 473ML MT SCH ×2 (09:49→22:00)
[2019-07-04] MEDS: POTASSIUM CHL 20 Meq TABLET PO SCH ×2 (09:49→21:55)
[2019-07-04] MEDS: DOCUSATE SOD 100 MG CAP PO SCH ×2 (09:49→23:00)
--- NOTE | 2019-07-04 10:02 | NUR ---
LAB SPECIMENS DRAWN FROM [facility]ISTA AND SENT IN BULLET TO LAB FOR PROCESSING
--- NOTE | 2019-07-04 10:05 | NUR ---
PATIENTS WEI AT BEDSIDE UPDATED ON PLAN OF CARE
[2019-07-04 11:38] LABS: Basophils # (auto) 0 10 ^3/uL (0-0.2); Eosinophils # (auto) 0 10 ^3/uL (0-0.8); Hemoglobin 7.5 g/dL (13.5-17.5); Lymphocytes # (auto) 0.6 10 ^3/uL (0.4-5.4); Mean Corpuscular Hemoglobin 30.7 pg (28.0-32.0); Red Cell Distribution Width 14.4 % (11.8-14.3); White Blood Cell 10.4 10^3/uL (4.4-10.8)
[2019-07-04 11:39] LABS: Hematocrit 21.3 % (41.0-53.0); Lymphocytes % (auto) 6.1 % (10.0-50.0); Mean Corpuscular Hgb Conc. 35.1 g/dL (32.0-36.0); Mean Corpuscular Volume 87.6 fL (80.0-100.0); Monocytes # (auto) 0.9 10 ^3/uL (0-1.3); Monocytes % (auto) 8.4 % (0.0-12.0); Neutrophils # (auto) 8.9 10 ^3/uL (1.6-8.6); Neutrophils % (auto) 85.5 % (37.0-80.0); Platelet Count (auto) 222 10^3/uL (140-450); Red Blood Cells 2.44 10^6/uL (4.5-5.90)
[2019-07-04 11:55] LABS: INR 1.03 (0.9-1.15); Partial Thromboplastin Time 26.9 sec (23.64-32.05)
[2019-07-04] MEDS: Ensure HIGH Protein Chocolate 8oz Bottle PO SCH ×2 (12:00→18:00)
[2019-07-04] MEDS ORDERED: MORPHINE SULF INJ 2 MG/ML SYRINGE 1ML IV PRN (12:00)
[2019-07-04 12:02] LABS: Potassium 3.9 mmol/L (3.5-5.1)
--- NOTE | 2019-07-04 12:10 | NUR ---
DR WASHINGTON AT BEDSIDE DISCUSSED PLAN OF CARE WITH PATIENT AND PATIENTS
[2019-07-04 12:20] LABS: Albumin 3.3 g/dL (3.4-5.0); BUN/Creatinine Ratio 16.3; Bilirubin, Total 0.5 mg/dL (0.2-1.0); Calcium 7.7 mg/dL (8.5-10.1); Total Protein 5.8 g/dL (6.4-8.2)
[2019-07-04] MEDS ORDERED: diphenhdrAMINE HCL 50 MG/1 ML VL IV PRN (12:45)
[2019-07-04] MEDS: OXYCODONE W/ ACETAMINOPHEN 5/325MG TABLET PO PRN ×2 (13:23→20:07)
[2019-07-04] MEDS: NOREPINEPHRINE 8 MG/250ML KIT 250 ML IV SCH (13:53)
[2019-07-04] MEDS: SODIUM CHLORIDE 0.9% 500 ML IV SCH (13:53)
[2019-07-04] MEDS: PHENYLEPHRINE IV 250 ML IV SCH (13:53)
--- NOTE | 2019-07-04 14:20 | NUR ---
PA CATHETER REMOVED PER ORDER VERIFIED PLACEMENT ON THIS MORNINGS XRAY, CATHETER REMOVED INTACT, NO ECTOPY NOTED
[2019-07-04] MEDS: POTASSIUM CHL 20MEQ/100ML 100 ML IV PRN (15:14)
--- NOTE | 2019-07-04 16:37 | NUR ---
RIGHT BRACHIAL ARTERIAL LINE DISCONTINUED ORDERED USING ASEPTIC TECHNIQUE, JAZMYNE DISCONTINUED, CATHETER INTACT. MANUAL PRESSURE APPLIED FOR 10 MINUTES. PATIENT TOLERATED WELL. 4X4 GAUZE AND PRESSURE TAPE APPLIED. WILL CONTINUE TO MONITOR
[2019-07-04] MEDS ORDERED: MORPHINE SULFATE 4 MG/ML SYR/VIAL IV PRN (17:00)
--- NOTE | 2019-07-04 17:10 | NUR ---
PATIENT TO BEDSIDE CHAIR ASSISTED PATIENT TO BEDSIDE CHAIR WITH 2 RNS. MINIMAL ASSIST TO TRANSFER TO CHAIR. PATIENTS VITALS REMAINED STABLE DURING TRANSITION. REMAINS CONNECTED TO BEDSIDE MONITOR. CALL LIGHT WITHIN REACH AND INSTRUCTED TO CALL IF NEEDED. PATIENTS AT BEDSIDE. EDUCATED IMPORTANCE OF NOT GETTING UP BY HIMSELF. PATIENT VERBALIZED UNDERSTANDING. WITHIN VIEW OF NURSES STATION, WILL CONTINUE TO MONITOR
[2019-07-04] MEDS ORDERED: FUROSEMIDE 40 MG TAB PO SCH (18:00)
[2019-07-04] MEDS: FUROSEMIDE 20 MG TAB PO SCH (19:05)
[2019-07-04 19:30] LABS: Basophils # (auto) 0 10 ^3/uL (0-0.2); Basophils % (auto) 0.1 % (0.0-2.0); Eosinophils # (auto) 0 10 ^3/uL (0-0.8); Hematocrit 22.6 % (41.0-53.0); Hemoglobin 7.6 g/dL (13.5-17.5); Lymphocytes # (auto) 0.9 10 ^3/uL (0.4-5.4); Lymphocytes % (auto) 7.2 % (10.0-50.0); Mean Corpuscular Hemoglobin 29.9 pg (28.0-32.0); Mean Corpuscular Hgb Conc. 33.7 g/dL (32.0-36.0); Mean Corpuscular Volume 88.6 fL (80.0-100.0); Monocytes # (auto) 0.7 10 ^3/uL (0-1.3); Monocytes % (auto) 5.9 % (0.0-12.0); Neutrophils # (auto) 10.6 10 ^3/uL (1.6-8.6); Neutrophils % (auto) 86.8 % (37.0-80.0); Platelet Count (auto) 234 10^3/uL (140-450); Red Blood Cells 2.55 10^6/uL (4.5-5.90); Red Cell Distribution Width 14.9 % (11.8-14.3); White Blood Cell 12.2 10^3/uL (4.4-10.8)
[2019-07-04 19:37] LABS: BUN/Creatinine Ratio 14.8; Calcium 7.4 mg/dL (8.5-10.1); Potassium 4.4 mmol/L (3.5-5.1)
--- NOTE | 2019-07-04 19:44 | NUR ---
ACTIVITY PT ASSISTED BACK TO BED FROM CHAIR. CALL DURANT IN REACH.
[2019-07-04 19:45] LABS: INR 1.02 (0.9-1.15); Partial Thromboplastin Time 27.7 sec (23.64-32.05)
--- NOTE | 2019-07-04 20:00 | NUR ---
PAIN PT C/O PAIN /10 TO STERNAL INCISION. MEDICATED WITH PERCOCET PO PER ORDER. SEE EMAR.
[2019-07-04] MEDS: AMIODARONE HCL 900 MG in DEXTROSE 500 ML IV SCH (20:03)
[2019-07-04] MEDS: CALCIUM GLUC 4.65meq/50ml D5AE 50 ML IV PRN (23:29)
[2019-07-05] VITALS (33 sets, daily range): BP systolic 101–146; BP diastolic 43–76
--- NOTE | 2019-07-05 | NUR ---
REST PT SLEEPING. RR EVEN UNLABORED. VITAL SIGNS WNL.
[2019-07-05] MEDS: CALCIUM GLUC 4.65meq/50ml D5AE 50 ML IV PRN (00:44)
[2019-07-05] MEDS: VANCOMYCIN 1GM/250ML 250 ML IV SCH ×2 (01:30→12:52)
[2019-07-05] MEDS: OXYCODONE W/ ACETAMINOPHEN 5/325MG TABLET PO PRN ×4 (02:37→21:07)
--- NOTE | 2019-07-05 02:42 | NUR ---
PAIN PT C/O PAIN 5/10 TO STERNAL INCISION. MEDICATED WITH PERCOCET PO PER ORDER. SEE EMAR.
[2019-07-05] MEDS: MILRINONE 20MG/100ML 100 ML IV SCH ×2 (03:08→15:33)
[2019-07-05 03:18] LABS: Albumin 3.1 g/dL (3.4-5.0); BUN/Creatinine Ratio 15.5; Calcium 7.9 mg/dL (8.5-10.1); Potassium 4.2 mmol/L (3.5-5.1)
[2019-07-05 03:21] LABS: Bilirubin, Total 0.3 mg/dL (0.2-1.0); Total Protein 5.8 g/dL (6.4-8.2)
[2019-07-05] MEDS: ACCU-CHEK COMFORT CURVE STRIP VI SCH ×4 (04:45→21:10)
[2019-07-05] MEDS: InsuLIN REG 1unit/0.01ml Soln (100units/ml) SC SCH ×4 (04:50→21:10)
--- NOTE | 2019-07-05 05:00 | NUR ---
AM EKG DONE. PLACED IN CHART.
[2019-07-05 05:03] LABS: Basophils # (auto) 0.1 10 ^3/uL (0-0.2); Eosinophils # (auto) 0 10 ^3/uL (0-0.8); Hemoglobin 7.1 g/dL (13.5-17.5); Mean Corpuscular Hgb Conc. 34.2 g/dL (32.0-36.0); Monocytes # (auto) 0.7 10 ^3/uL (0-1.3)
[2019-07-05 05:04] LABS: Basophils % (auto) 0.7 % (0.0-2.0); Hematocrit 20.7 % (41.0-53.0); Lymphocytes % (auto) 9.2 % (10.0-50.0); Mean Corpuscular Hemoglobin 30.1 pg (28.0-32.0); Mean Corpuscular Volume 88.1 fL (80.0-100.0); Monocytes % (auto) 6.1 % (0.0-12.0); Platelet Count (auto) 191 10^3/uL (140-450); Red Blood Cells 2.35 10^6/uL (4.5-5.90); Red Cell Distribution Width 15.2 % (11.8-14.3); White Blood Cell 10.7 10^3/uL (4.4-10.8)
--- NOTE | 2019-07-05 05:30 | NUR ---
INCISION CARE CHEST TUBE DRESSINGS REMOVED. AREA CLEANSED WITH CHLORHEXIDINE SWABS PER MD PREFERENCE. VASELINE GAUZE PLACED TO INSERTION SITES. COVERED WITH STERILE 4X4'S SECURED WITH MEDIPORE TAPE.
--- NOTE | 2019-07-05 05:45 | NUR ---
ACTIVITY PT AMBULATED WITH USE OF ROLLING WALKER ON PORTABLE O2 WITH PORTABLE MONITOR. AMBULATED 1 AND 1/2 LAPS AROUND RN STATION. PT ASSISTED TO CHAIR. CALL DURANT IN REACH.
[2019-07-05] MEDS: IPRATROPIUM BROM 0.5 MG/2.5ML INH SOL NEB SCH ×6 (06:10→22:31)
[2019-07-05] MEDS: ALBUTEROL SULF 2.5 MG/0.5ML(0.5%) NEB SOLN NEB SCH ×6 (06:10→22:31)
[2019-07-05] MEDS: FUROSEMIDE 20 MG TAB PO SCH ×2 (06:29→18:46)
[2019-07-05] MEDS: ceFAZolin 1GM 2 GM in D5W 5% 100 ML IV SCH (06:30)
--- NOTE | 2019-07-05 06:30 | NUR ---
PAIN PT C/O PAIN 5/10 TO STERNAL INCISION. PT MEDICATED WITH PERCOCET PO PER ORDER. SEE EMAR.
--- NOTE | 2019-07-05 07:22 | NUR ---
I.S. PT EDUCATED TO USE I.S. Q 1 HR WHILE AWAKE. USING PROPER TECHNIQUE BEST EFFORT 1200 ML.
--- NOTE | 2019-07-05 07:45 | NUR ---
OPEN REPORT RECEIVED FROM COAL GASIFICATION TECHNICIAN RN, MORNING ASSESSMENT PERFORMED AND DOCUMENTED. 79 YEAR OLD MALE STATUS POST CABG ON 07/03/19. PATIENT RECEIVED SITTING UP IN BEDSIDE CHAIR, ALERT AND ORIENTED X4, NO DISTRESS NOTED, RESPIRATIONS EVEN AND UNLABORED, CURRENTLY ON 3 LITERS OXYGEN VIA NASAL CANNULA. VSS AND DOCUMENTED. PATIENT APPEARS TO BE IN A POSITIVE MOOD, VERY ALERT AND USING INCENTIVE SPIROMETER FREQUENTLY MEASURING 1000 - 1500 MLS AT THE HIGHEST. RIGHT IJ CORDIS INTACT, DRESSING IS CLEAN AND DRY, LEFT HAND PERIPHERAL IV PATENT AND SALINE LOCKED. STERNAL INCISION WITH AQUACEL DRESSING IS CDI. L. PLEURAL AND MEDIASTINAL CHEST TUBES IN PLACE DRAINING BLOODY DRAINAGE TO ATRIUM COLLECTION SITE AND SECURED TO FLOOR, UNIT CONNECTED TO 20 CM SUCTION. NO CREPITUS OR AIR LEAK OBSERVED. IBRAHIM DRAINING TO GRAVITY CLEAR/YELLOW URINE. BILATERAL PATTIE HOSE APPLIED BY COAL GASIFICATION TECHNICIAN - ENDOSCOPIC HARVEST SITES OPENED TO AIR AND ARE CDI. PATIENT REPORTS PAIN TO THE LEFT LATERAL CHEST WALL AND STATES THE PAIN AREA HAS BEEN THE SAME SINCE SURGERY, PATIENT MEDICATED ORDERED BY MD PRIOR TO SHIFT CHANGE. PATIENT ABLE TO PERFORM OWN ADL'S (BRUSHED TEETH/COMBED HAIR). CALL LIGHT WITHIN REACH, FALL AND SAFETY PRECAUTIONS PLACE, WILL CONTINUE TO MONITOR.
--- NOTE | 2019-07-05 08:51 | NUR ---
FAMILY AT BEDSIDE PATIENT'S SPOUSE WEI AT BEDSIDE.
--- NOTE | 2019-07-05 09:00 | NUR ---
CALL TO PHYSICAL THERAPY ROGE NOTIFIED THIS NURSE THAT "DOMO WILL DO INITIAL ASSESSMENT AND SHOULD BE COMING SOON, HE IS AWARE".
--- NOTE | 2019-07-05 09:30 | NUR ---
AMBULATION PATIENT AMBULATED 3 LAPS AROUND ICU NURSE STATION WITH USE OF ROLLATOR - CONNECTED TO PORTABLE MONITOR AND ACCOMPANIED BY PHYSICAL THERAPIST. PATIENT TOLERATED WELL AND WAS ASSISTED TO BED PER PATIENT REQUEST. PATIENT CONNECTED TO BEDSIDE MONITOR, VSS AND DOCUMENTED. FALL AND SAFETY PRECAUTIONS IN PLACE. WILL CONTINUE TO MONITOR.
[2019-07-05] MEDS: PANTOPRAZOLE 40 MG/10 ML VIAL INJ IV SCH (09:53)
[2019-07-05] MEDS: METOPROLOL TARTRATE 25 MG TAB PO SCH ×2 (09:55→21:07)
[2019-07-05] MEDS: LISINOPRIL 10 MG TAB PO SCH (09:55)
[2019-07-05] MEDS: NITROGLYCERIN 0.4MG/HR TOPICAL PATCH TD SCH (09:55)
[2019-07-05] MEDS: DOCUSATE SOD 100 MG CAP PO SCH ×2 (09:56→21:08)
[2019-07-05] MEDS: CHLORHEXIDINE 0.12% ORAL rinse 473ML MT SCH ×2 (09:56→22:00)
[2019-07-05] MEDS: ASPirin 81 mg TAB PO SCH (09:56)
[2019-07-05] MEDS: POTASSIUM CHL 20 Meq TABLET PO SCH ×2 (09:56→21:07)
[2019-07-05] MEDS: Glucerna Carbsteady SHAKE Vanilla 8oz PO SCH ×3 (09:57→18:47)
--- NOTE | 2019-07-05 10:15 | NUR ---
Respiratory note: PT REFUSED [place] AT THIS TIME. PT STATED HE WAS VERY TIRED. RN NOTIFY.
--- NOTE | 2019-07-05 11:04 | NUR ---
CONTACT PHYSICAL THERAPIST PATIENT REQUESTING TO BE PLACED BACK IN BEDSIDE CHAIR - PRIOR TO GETTING UP, PATIENT WILL RECEIVE BREATHING TREATMENT THAT HE PREVIOUSLY REFUSED AND WILL SIT UP IN CHAIR FOR LUNCH.
--- NOTE | 2019-07-05 11:25 | NUR ---
HOSPITALIST AT BEDSIDE DR WASHINGTON UPDATED ON PATIENT'S STATUS, VITAL SIGNS, MORNING LABS AND HGB, CHEST TUBE/IBRAHIM OUTPUT AND AMBULATION. ORDERS RECEIVED AND ENTERED BY DR WASHINGTON. CURRENT BLOOD SUGAR 175 - DR WASHINGTON STATED "OK TO ADMINISTER 4 UNITS PER AGGRESSIVE SLIDING SCALE AND ALSO GIVE GLIPIZIDE [address] WASHINGTON CHANGED ACCU CHECK TO Q6H ON MODERATE SCALE.
[2019-07-05] MEDS ORDERED: DEXTROSE (50%) 50ML SYRG IV PRN (11:30)
[2019-07-05] MEDS ORDERED: glipiZIDE 5 MG TAB PO ONE (11:45)
--- NOTE | 2019-07-05 12:11 | NUR ---
TRANSFUSION STARTED ONE UNIT PRBC STARTED PER MD ORDER. VSS AND DOCUMENTED. DISCUSSED S/S OF MONITOR WITH PATIENT - PATIENT VERBALIZED UNDERSTANDING. WILL MONITOR.
--- NOTE | 2019-07-05 12:26 | NUR ---
15 MIN TRANSFUSION REASSESSMENT PATIENT DENIES PAIN OR DISCOMFORT AT THIS TIME, VSS AND DOCUMENTED. WILL CONTINUE TO MONITOR.
--- NOTE | 2019-07-05 12:28 | NUR ---
PAGED PHYSICAL THERAPY TO ASSIST PATIENT OUT OF BED FOR LUNCH.
--- NOTE | 2019-07-05 12:33 | NUR ---
DR DAVIS AT BEDSIDE UPDATED ON PATIENT'S STATUS AND DR WASHINGTON'S ORDERS. DR DAVIS SPOKE WITH DR WASHINGTON PRIOR TO ASSESSING PATIENT. DR DAVIS ASSESSED PATIENT AND VERBALIZED UNDERSTANDING. NO ORDERS AT THIS TIME.
--- NOTE | 2019-07-05 12:52 | NUR ---
30 MIN TRANSFUSION ASSESSMENT PATIENT DENIES ANY PAIN OR DISCOMFORT AT TIME, VSS AND DOCUMENTED. WILL CONTINUE TO MONITOR.
[2019-07-05] MEDS: SODIUM CHLORIDE 0.9% 500 ML IV SCH (13:53)
--- NOTE | 2019-07-05 15:00 | NUR ---
TRANSFUSION COMPLETE ONE UNIT PRBC TRANSFUSION COMPLETED ORDERED BY THEE NINO AND DOCUMENTED, PATIENT DENIES ANY PAIN OR DISCOMFORT AT THIS TIME.
--- NOTE | 2019-07-05 15:19 | NUR ---
AMBULATION PATIENT AMBULATED FOUR TIMES AROUND ICU UNIT WITH USE OF ROLLATOR, CONNECTED TO PORTABLE MONITOR AND ACCOMPANIED BY PHYSICAL THERAPIST X3. NO DISTRESS NOTED, RESPIRATIONS EVEN AND UNLABORED. PATIENT ASSISTED TO BEDSIDE CHAIR AND CONNECTED TO BEDSIDE MONITOR. WILL CONTINUE TO MONITOR.
--- NOTE | 2019-07-05 15:39 | NUR ---
JOHNNIE DOULA/CALL HOSPITALIST ONE TIME DOSE OF GLIPIZIDE ORDERED BY HOSPITALIST EARLIER TODAY WAS RECEIVED FROM PHARMACY LATE. MEDICATION JUST ADMINISTERED, DR WASHINGTON ORDERED 1800 DOSE TO BE HELD AND ADMINISTER INSULIN PER SLIDING SCALE BASED ON BLOOD SUGAR.
[2019-07-05] MEDS: glipiZIDE 5 MG TAB PO SCH (15:43)
--- NOTE | 2019-07-05 15:44 | NUR ---
Family updated on pt status Family of ANNAELLA updated on patient's status and condition after password verification. All questions and concerns addressed. Patient's spouse Raquel verbalized understanding.
--- NOTE | 2019-07-05 16:12 | NUR ---
RETURN TO BED/CORDIS DISCONTINUED PATIENT REQUESTED TO BE ASSISTED BACK TO BED - CORDIS DISCONTINUED, CATHETER INTACT, PRESSURE DRESSING APPLIED. WILL CONTINUE TO MONITOR.
--- NOTE | 2019-07-05 17:00 | NUR ---
FAMILY AT BEDSIDE PATIENT'S SPOUSE WEI AT BEDSIDE AND UPDATED ON STATUS.
--- NOTE | 2019-07-05 18:05 | NUR ---
RT NOTE PT PLACED ON BIPAP #[id number] ON STATED SETTINGS WITH MEDIUM MASK FOR 45 MIN DURATION. MED NEB TX GIVEN INLINE WITH 2.5 MG ALBUTEROL AND 0.5 MG ATROVENT WITHOUT ADVERSE REACTION NOTED. BIPAP IS PLUGGED TO RED OUTLET. ALARMS ARE ON AND AUDIBLE TO NURSING STATION. AT BEDSIDE. CONT ORDERED. Addendum: 07/05/19 at 1906 by Marnie Hedrick RT Amended: Links added.
[2019-07-05 19:07] LABS: Hematocrit 24.7 % (41.0-53.0); Hemoglobin 8.6 g/dL (13.5-17.5)
--- NOTE | 2019-07-05 19:27 | NUR ---
END OF SHIFT NOTE PATIENT SITTING UP IN BED EATING DINNER, SPOUSE WEI AT BEDSIDE. PATIENT ALERT AND ORIENTED X4, NO DISTRESS NOTED, RESPIRATIONS EVEN AND UNLABORED. PATIENT DENIES PAIN OR DISCOMFORT, VSS AND DOCUMENTED. FALL AND SAFETY PRECAUTIONS IN PLACE. ENDORSED CONTINUED CARE TO DUAL HOSE CEMENTER RN.
--- NOTE | 2019-07-05 19:30 | NUR ---
OPEN ASSUMED CARE OF MALE PT S/P CABG ON 07/02. PT SITTING IN CHAIR AT SIDE OF BED. PT A&O X 4. O2 VIA N/C 2L. SR ON FISH HATCHERY ASSISTANT. 22 G IV TO L. HAND S/L. STERNAL INCISION WITH CDI AQUACEL DRESSING IN PLACE. L. PLEURAL AND MEDIASTINAL CHEST TUBES IN PLACE DRAINING SANGUINEOUS DRAINAGE TO ATRIUM COLLECTION UNIT SECURED TO THE FLOOR. NO AIR LEAK OR CREPITUS OBSERVED/PALPATED. EPICARDIAL V PACER WIRES IN PLACE ISOLATED TO CHEST. EXTERNAL GENERATOR ON STANDBY. IBRAHIM TO GRAVITY DRAINING CLEAR YELLOW URINE. ENDOSCOPIC INCISIONS PRESENT TO DANISHA MEDIAL KNEES, R. ANKLE, AND L. GROIN. ALL INCISIONS WELL APPROXIMATED. OPEN TO AIR. PT DENIES PAIN AT THIS TIME. CALL DURANT IN REACH. EDUCATED PT TO USE CALL DURANT FOR ASSIST PRIOR TO ATTEMPTING TO AMBULATE. PT VERBALIZES UNDERSTANDING.
[2019-07-05] MEDS: AMIODARONE HCL 900 MG in DEXTROSE 500 ML IV SCH (20:03)
--- NOTE | 2019-07-05 20:20 | NUR ---
GI ACTIVITY PT ASSISTED FROM CHAIR TO COMMODE WITH USE OF WALKER ON PORTABLE O2. FOR BM. NO BM PT PASSING FLATUS. ASSISTED PT FROM COMMODE TO BED PER REQUEST. CALL DURANT IN REACH.
--- NOTE | 2019-07-05 21:00 | NUR ---
PAIN PT C/O PAIN 4/10 TO CHEST TUBE INSERTION SITES. MEDICATES WITH PERCOCET PO PER ORDER.
--- NOTE | 2019-07-05 22:20 | NUR ---
RT NOTE PT PLACED ON BIPAP #[id number] ON STATED SETTINGS WITH MEDIUM MASK FOR 45 MIN DURATION. MED NEB TX GIVEN INLINE WITH 2.5 MG ALBUTEROL AND 0.5 MG ATROVENT WITHOUT ADVERSE REACTION NOTED. BIPAP IS PLUGGED TO RED OUTLET. ALARMS ARE ON AND AUDIBLE TO NURSING STATION. CONT ORDERED.POX 98% Addendum: 07/05/19 at 2259 by Marnie Hedrick RT Amended: Links added.
--- NOTE | 2019-07-05 23:00 | NUR ---
REST PT SLEEPING RR EVEN UNLABORED. VITAL SIGNS WNL. WILL CONTINUE TO MONITOR.
[2019-07-06] VITALS (24 sets, daily range): BP systolic 96–141; BP diastolic 49–85
--- NOTE | 2019-07-06 03:55 | NUR ---
Report received from Kristen ENGL[place]. Assumed care of patient at this time. VSS. Pt resting, Will monitor pt carefully.
[2019-07-06] MEDS: MILRINONE 20MG/100ML 100 ML IV SCH ×2 (03:58→14:39)
[2019-07-06] MEDS: OXYCODONE W/ ACETAMINOPHEN 5/325MG TABLET PO PRN (06:03)
[2019-07-06] MEDS: FUROSEMIDE 20 MG TAB PO SCH ×2 (06:03→19:41)
--- NOTE | 2019-07-06 06:10 | NUR ---
Am cares Incisional care done as ordered. Du hose placed on bilateral lower extremities. EKG done placed in hard chart. Chest tube wound care done, dressing changed and dated. Patient ambulated 6 laps around unit. Pt tolerated well. VSS. Pt returned to chair at bedside. Linens changed on bed. Pain medication given per patient request. Patient sitting upright in chair. Mcguire and chest tube draining to gravity. Pt on 2 lts NC. VSS. Will continue with care.
[2019-07-06] MEDS: glipiZIDE 5 MG TAB PO SCH ×2 (06:50→21:46)
[2019-07-06] MEDS: ACCU-CHEK COMFORT CURVE STRIP VI SCH ×4 (06:51→22:13)
[2019-07-06] MEDS: InsuLIN REG 1unit/0.01ml Soln (100units/ml) SC SCH ×4 (06:52→22:00)
[2019-07-06] MEDS: IPRATROPIUM BROM 0.5 MG/2.5ML INH SOL NEB SCH ×5 (07:00→21:52)
[2019-07-06] MEDS: ALBUTEROL SULF 2.5 MG/0.5ML(0.5%) NEB SOLN NEB SCH ×5 (07:00→21:52)
[2019-07-06] MEDS: metFORMIN HYDROCHLORIDE 500 MG TAB PO SCH ×2 (08:00→19:34)
--- NOTE | 2019-07-06 08:00 | NUR ---
OPEN:POD #3 RECEIVED REPORT FROM NIGHT RN. ASSUMED CARE OF ICU PATIENT, FULL CODE STATUS. S/P CABG. POD #3. PATIENT SITTING UP IN CARDIAC CHAIR AT BEDSIDE. PATIENT A & O X4, CALM AND FOLLOWS COMMANDS. NO PAIN AT THIS TIME. PATIENT WANTING TO GO BACK TO BED AT THIS TIME TO TAKE A NAP. PATIENT HAD ALREADY WALKED 6 LAPS THIS AM WITH THE NIGHT RN. HELPED PATIENT AT THIS TIME, USING STAND BY ASSIST., TO BE BACK IN BED. PATIENT ON O2 AT 2L VIA NC. X2 CHEST TUBES TO -20 CM OF H2O WATER SUCTION AT THIS TIME TO ONE ATRIUM COLLECTION CHAMBER. IBRAHIM TO GRAVITY. DANISHA PATTIE HOSE ON PATIENT'S LE AT THIS TIME. SEE ONCOLOGY TRANSPLANT NETWORK MANAGER FOR FURTHER PATIENT INFORMATION. WILL CONTINUE TO MONITOR.
[2019-07-06] MEDS: Glucerna Carbsteady SHAKE Vanilla 8oz PO SCH ×3 (09:32→19:35)
[2019-07-06] MEDS: ASPirin 81 mg TAB PO SCH (11:15)
[2019-07-06] MEDS: CHLORHEXIDINE 0.12% ORAL rinse 473ML MT SCH ×2 (11:17→21:36)
[2019-07-06] MEDS: POTASSIUM CHL 20 Meq TABLET PO SCH ×2 (11:25→21:35)
[2019-07-06] MEDS: PANTOPRAZOLE 40 MG TAB PO SCH (11:25)
[2019-07-06] MEDS: METOPROLOL TARTRATE 25 MG TAB PO SCH ×2 (11:25→21:35)
[2019-07-06] MEDS: LISINOPRIL 10 MG TAB PO SCH (11:26)
--- NOTE | 2019-07-06 11:30 | NUR ---
ELIMINATION PATIENT HAD X1 MODERATE AMOUNT OF SOFT STOOL, DARK BROWN IN COLOR. PATIENT PROVIDED LESLIE-CARE DURING THIS TIME. PATIENT ABLE TO TRANSFER WELL, WITH STAND BY ASSIST. PATIENT TRANSFERRED BACK TO CARDIAC CHAIR. CONTINUE CARE.
--- NOTE | 2019-07-06 11:30 | NUR ---
AMBULATION PHYSICAL THERAPIST AT BEDSIDE, HELPING PATIENT AMBULATE. PATIENT GIVEN WALKER, PLACED ON TELE MONITOR AND O2 AT 3L VIA NC. PATIENT ABLE TO AMBULATE AROUND NURSING STATION X6 LAPS. PATIENT TOLERATED WELL, WITH STAND BY ASSIST. PATIENT THEN PLACED BACK IN CARDIAC CHAIR AT BEDSIDE. PLACED BACK ON BEDSIDE TELE MONITOR, O2 AT 3L VIA NC, NO DISTRESS NOTED AT THIS TIME. VSS. CHEST TUBES X2 TO - 20 CM OF H2O WATER SUCTION. AT BEDSIDE. WILL CONTINUE TO MONITOR.
[2019-07-06 11:40] LABS: Basophils # (auto) 0 10 ^3/uL (0-0.2); Basophils % (auto) 0.2 % (0.0-2.0); Eosinophils # (auto) 0.1 10 ^3/uL (0-0.8); Eosinophils % (auto) 0.6 % (0.0-7.0); Hematocrit 28.9 % (41.0-53.0); Lymphocytes # (auto) 1.4 10 ^3/uL (0.4-5.4); Lymphocytes % (auto) 12.2 % (10.0-50.0); Mean Corpuscular Hemoglobin 31.2 pg (28.0-32.0); Mean Corpuscular Hgb Conc. 34.7 g/dL (32.0-36.0); Mean Corpuscular Volume 89.8 fL (80.0-100.0); Monocytes # (auto) 0.5 10 ^3/uL (0-1.3); Monocytes % (auto) 4.5 % (0.0-12.0); Neutrophils # (auto) 9.2 10 ^3/uL (1.6-8.6); Neutrophils % (auto) 82.5 % (37.0-80.0); Platelet Count (auto) 215 10^3/uL (140-450); Red Blood Cells 3.22 10^6/uL (4.5-5.90); Red Cell Distribution Width 14.4 % (11.8-14.3); White Blood Cell 11.2 10^3/uL (4.4-10.8)
[2019-07-06] MEDS: NITROGLYCERIN 0.4MG/HR TOPICAL PATCH TD SCH (11:41)
[2019-07-06 12:28] LABS: Albumin 3.1 g/dL (3.4-5.0); Calcium 8.5 mg/dL (8.5-10.1)
[2019-07-06 12:32] LABS: BUN/Creatinine Ratio 15.6; Bilirubin, Total 0.5 mg/dL (0.2-1.0); Total Protein 6.3 g/dL (6.4-8.2)
--- NOTE | 2019-07-06 14:00 | NUR ---
CHEST TUBE OUTPUT CURRENT C.T. OUTPUT SINCE THE START OF SHIFT, TO CURRENT TIME, IS -50 CC. FLUID REMOVED IS SANGUINOUS. CHEST TUBE DRESSING C, D,AND I. WILL CONTINUE TO MONITOR.
[2019-07-06] MEDS: SODIUM CHLORIDE 0.9% 500 ML IV SCH (14:38)
--- NOTE | 2019-07-06 19:00 | NUR ---
Opening note Assumed care of patient at this time. Report received from day shift RN. POC reviewed. Head to toe assessment complete, see intervention spreadsheet for complete details. Received pt sitting upright in bed eating dinner. VSS. Pt on 2 lts nc. Pt denies pain and discomfort. Iv site benign. Mcguire catheter draining to gravity. Mediastinal and left plural chest tube draining, set to 20 cm of suction. Call light within reach. Bed locked and in lowest position, safety precautions in place. Will monitor pt carefully.
--- NOTE | 2019-07-06 19:00 | NUR ---
CLOSE: PATIENT IN BED, EATING DINNER AT THIS TIME. PATIENT ON O2 AT 2L VIA NC. NO PAIN AT THIS TIME. X2 CHEST TUBES TO - 20 CM OF H2O SUCTION, DRAINING IN ATRIUM COLLECTION CHAMBER. TOTAL I & O 'S: IBRAHIM OUTPUT 2050 ML. CHEST TUBE TOTAL: 70 ML, SANGUINOUS DRAINAGE. IBRAHIM TO GRAVITY. REPORT GIVEN TO TOMÁS GODWIN. TRANSFER CARE.
[2019-07-06] MEDS: AMIODARONE HCL 900 MG in DEXTROSE 500 ML IV SCH (20:03)
--- NOTE | 2019-07-06 20:49 | NUR ---
Ambulation Pt out of bed for ambulation. Pt walked 7 laps around unit with VS monitor and 3 lts NC. Pt tolerated well. Pt sitting in chair bedside using IS.Pt denies pain at this time. Call light within reach. Will continue with care.
[2019-07-06] MEDS: DOCUSATE SOD 100 MG CAP PO SCH (21:36)
--- NOTE | 2019-07-06 21:52 | NUR ---
Pt back in bed. Du reich removed. VSS. Call light within reach. Will continue with care.
[2019-07-07] VITALS (28 sets, daily range): BP systolic 96–134; BP diastolic 49–86
[2019-07-07] MEDS: MILRINONE 20MG/100ML 100 ML IV SCH ×2 (04:48→17:13)
[2019-07-07 05:44] LABS: Basophils # (auto) 0 10 ^3/uL (0-0.2); Basophils % (auto) 0.2 % (0.0-2.0); Eosinophils # (auto) 0.1 10 ^3/uL (0-0.8); Hematocrit 29.2 % (41.0-53.0); Hemoglobin 9.6 g/dL (13.5-17.5); Lymphocytes % (auto) 10.6 % (10.0-50.0); Mean Corpuscular Hemoglobin 29.8 pg (28.0-32.0); Mean Corpuscular Hgb Conc. 32.9 g/dL (32.0-36.0); Mean Corpuscular Volume 90.7 fL (80.0-100.0); Monocytes # (auto) 0.6 10 ^3/uL (0-1.3); Monocytes % (auto) 6.1 % (0.0-12.0); Neutrophils # (auto) 7.7 10 ^3/uL (1.6-8.6); Neutrophils % (auto) 82.1 % (37.0-80.0); Platelet Count (auto) 194 10^3/uL (140-450); Red Blood Cells 3.22 10^6/uL (4.5-5.90); Red Cell Distribution Width 14.8 % (11.8-14.3); White Blood Cell 9.4 10^3/uL (4.4-10.8)
[2019-07-07] MEDS: OXYCODONE W/ ACETAMINOPHEN 5/325MG TABLET PO PRN (06:04)
[2019-07-07] MEDS: FUROSEMIDE 20 MG TAB PO SCH ×2 (06:04→19:13)
[2019-07-07 06:07] LABS: Albumin 2.8 g/dL (3.4-5.0); BUN/Creatinine Ratio 20.2; Calcium 8.8 mg/dL (8.5-10.1); Potassium 4.2 mmol/L (3.5-5.1)
--- NOTE | 2019-07-07 06:08 | NUR ---
Am cares/ambulation Incisional care done as ordered. Du hose placed on bilateral lower extremities. EKG done placed in hard chart. Chest tube wound care done, dressing changed and dated. Patient ambulated 8 laps around unit on 3 lts nc. Pt tolerated well. VSS. Pt returned to chair at bedside. Linens changed on bed. Pain medication given per patient request pain /10. Patient sitting upright in chair using IS. Oral care done. Mcguire and chest tube draining to gravity. Pt on 2 lts NC. VSS. Will continue with care.
[2019-07-07 06:09] LABS: Bilirubin, Total 0.6 mg/dL (0.2-1.0); Total Protein 5.8 g/dL (6.4-8.2)
[2019-07-07] MEDS: IPRATROPIUM BROM 0.5 MG/2.5ML INH SOL NEB SCH ×5 (06:13→22:15)
[2019-07-07] MEDS: ALBUTEROL SULF 2.5 MG/0.5ML(0.5%) NEB SOLN NEB SCH ×5 (06:13→22:15)
[2019-07-07] MEDS: ACCU-CHEK COMFORT CURVE STRIP VI SCH ×4 (07:07→22:24)
[2019-07-07] MEDS: glipiZIDE 5 MG TAB PO SCH ×2 (07:07→19:12)
[2019-07-07] MEDS: InsuLIN REG 1unit/0.01ml Soln (100units/ml) SC SCH ×4 (07:12→22:28)
--- NOTE | 2019-07-07 07:21 | NUR ---
IS PT MAXED AT 4500 MLS. PT TOLERATED WELL.
[2019-07-07] MEDS: metFORMIN HYDROCHLORIDE 500 MG TAB PO SCH ×2 (08:00→18:00)
[2019-07-07] MEDS: Glucerna Carbsteady SHAKE Vanilla 8oz PO SCH ×3 (08:00→18:00)
--- NOTE | 2019-07-07 09:15 | NUR ---
FAMILY Patients family at bedside.
--- NOTE | 2019-07-07 09:55 | NUR ---
FAMILY Family has left.
[2019-07-07] MEDS: DOCUSATE SOD 100 MG CAP PO SCH ×2 (10:00→22:26)
--- NOTE | 2019-07-07 10:00 | NUR ---
ACTIVITY Patient was able to ambulate 8 laps around unit with no incident. Patient assisted to bedside chair and informed patient he will be up in chair until dinner time. Will continue to monitor patient.
[2019-07-07] MEDS: NITROGLYCERIN 0.4MG/HR TOPICAL PATCH TD SCH (10:18)
[2019-07-07] MEDS: LISINOPRIL 10 MG TAB PO SCH (10:18)
[2019-07-07] MEDS: ASPirin 81 mg TAB PO SCH (10:19)
[2019-07-07] MEDS: PANTOPRAZOLE 40 MG TAB PO SCH (10:19)
[2019-07-07] MEDS: METOPROLOL TARTRATE 25 MG TAB PO SCH ×2 (10:19→22:25)
[2019-07-07] MEDS: POTASSIUM CHL 20 Meq TABLET PO SCH ×2 (10:19→22:25)
[2019-07-07] MEDS: CHLORHEXIDINE 0.12% ORAL rinse 473ML MT SCH ×2 (10:20→22:20)
--- NOTE | 2019-07-07 12:00 | NUR ---
SNACK Patient requested frit bowl that brought in from home. Patient tolerating well.
--- NOTE | 2019-07-07 12:40 | NUR ---
LUNCH Patient eating lunch, appears to be tolerating well.
[2019-07-07] MEDS: SODIUM CHLORIDE 0.9% 500 ML IV SCH (13:53)
--- NOTE | 2019-07-07 14:00 | NUR ---
ACTIVITY Patient was able to ambulate 9 laps around the unit without incident. Patient tolerated well and assisted patient back into bedside chair.
--- NOTE | 2019-07-07 15:14 | NUR ---
Patient was getting breathing treatment in chair when PT went to ambulate, but patient said he had already ambulated 10 laps around nursing station. Will try again tomorrow. Addendum: 07/07/19 at 1520 by MEAGHAN ESTES PTT Amended: Links added.
[2019-07-07] MEDS ORDERED: FINASTERIDE 5 MG TAB PO ONE (15:30)
--- NOTE | 2019-07-07 16:05 | NUR ---
ACTIVITY Patient requested to get back in bed. Patient tolerated well.
[2019-07-07] MEDS: AMIODARONE HCL 900 MG in DEXTROSE 500 ML IV SCH (20:03)
--- NOTE | 2019-07-07 21:00 | NUR ---
AMBULATION 2019 TO 2054 PATIENT AMBULATED 11 TIMES AROUND ICU UNIT WITH USE OF WALKER, CONNECTED TO PORTABLE MONITOR AND OXYGEN. VITAL SIGNS ARE STABLE. NO DISTRESS NOTED, RESPIRATIONS EVEN AND UNLABORED. PATIENT ASSISTED BACK TO BED AND CONNECTED TO BEDSIDE MONITOR. WILL CONTINUE TO MONITOR.
--- NOTE | 2019-07-07 21:30 | NUR ---
Patient bathe/dressing change Patient given complete bath with chlorhexidine wipes. Skin integrity assessed for any changes. Linens changed. chest tubes sites and endoscopic harvest sites cleaned with Povidone swabs. Applied Vaseline gauze and sterile gauze to chest tube sites. Secured with tape.
[2019-07-08] VITALS (27 sets, daily range): BP systolic 91–141; BP diastolic 50–90
[2019-07-08 04:49] LABS: Basophils # (auto) 0 10 ^3/uL (0-0.2); Basophils % (auto) 0.3 % (0.0-2.0); Eosinophils # (auto) 0.2 10 ^3/uL (0-0.8); Eosinophils % (auto) 2.6 % (0.0-7.0); Hematocrit 28.7 % (41.0-53.0); Hemoglobin 9.8 g/dL (13.5-17.5); Lymphocytes # (auto) 1.2 10 ^3/uL (0.4-5.4); Lymphocytes % (auto) 14.6 % (10.0-50.0); Mean Corpuscular Hemoglobin 30.6 pg (28.0-32.0); Mean Corpuscular Hgb Conc. 34.1 g/dL (32.0-36.0); Mean Corpuscular Volume 89.9 fL (80.0-100.0); Monocytes # (auto) 0.6 10 ^3/uL (0-1.3); Monocytes % (auto) 7.4 % (0.0-12.0); Neutrophils % (auto) 75.1 % (37.0-80.0); Nucleated Red Blood Cells % 0.1 %; Platelet Count (auto) 211 10^3/uL (140-450); Red Cell Distribution Width 14.3 % (11.8-14.3); White Blood Cell 7.9 10^3/uL (4.4-10.8)
[2019-07-08 05:04] LABS: Calcium 9.1 mg/dL (8.5-10.1); Potassium 4.2 mmol/L (3.5-5.1)
[2019-07-08 05:06] LABS: BUN/Creatinine Ratio 22.9
[2019-07-08 05:12] LABS: Bilirubin, Total 0.6 mg/dL (0.2-1.0)
[2019-07-08] MEDS: MILRINONE 20MG/100ML 100 ML IV SCH ×2 (05:38→18:03)
[2019-07-08] MEDS: ALBUTEROL SULF 2.5 MG/0.5ML(0.5%) NEB SOLN NEB SCH ×5 (06:07→22:11)
[2019-07-08] MEDS: IPRATROPIUM BROM 0.5 MG/2.5ML INH SOL NEB SCH ×5 (06:07→22:11)
[2019-07-08] MEDS: glipiZIDE 5 MG TAB PO SCH ×2 (07:02→17:50)
[2019-07-08] MEDS: FUROSEMIDE 20 MG TAB PO SCH ×2 (07:02→17:50)
[2019-07-08] MEDS: ACCU-CHEK COMFORT CURVE STRIP VI SCH ×4 (07:03→22:00)
[2019-07-08] MEDS: InsuLIN REG 1unit/0.01ml Soln (100units/ml) SC SCH ×4 (07:09→22:00)
[2019-07-08] MEDS: metFORMIN HYDROCHLORIDE 500 MG TAB PO SCH ×2 (08:00→17:50)
[2019-07-08] MEDS: Glucerna Carbsteady SHAKE Vanilla 8oz PO SCH ×3 (08:00→18:26)
[2019-07-08] MEDS: DOCUSATE SOD 100 MG CAP PO SCH ×3 (10:00→21:50)
[2019-07-08] MEDS: CHLORHEXIDINE 0.12% ORAL rinse 473ML MT SCH ×2 (10:00→22:00)
--- NOTE | 2019-07-08 10:00 | NUR ---
ACTIVITY Patient was able to ambulate 12 laps in unit with no incident. Patient tolerated well. Patient assisted to chair.
[2019-07-08] MEDS: ASPirin 81 mg TAB PO SCH (10:30)
[2019-07-08] MEDS: POTASSIUM CHL 20 Meq TABLET PO SCH ×2 (10:30→21:47)
[2019-07-08] MEDS: METOPROLOL TARTRATE 25 MG TAB PO SCH ×2 (10:30→21:47)
[2019-07-08] MEDS: FINASTERIDE 5 MG TAB PO SCH (10:30)
[2019-07-08] MEDS: LISINOPRIL 10 MG TAB PO SCH (10:31)
[2019-07-08] MEDS: PANTOPRAZOLE 40 MG TAB PO SCH (10:31)
[2019-07-08] MEDS: NITROGLYCERIN 0.4MG/HR TOPICAL PATCH TD SCH (10:31)
--- NOTE | 2019-07-08 11:53 | NUR ---
NUTRITION ASSESSMENT NOTES Please refer to link notes of nutrition screen form filed under the intervention section of the plan of care for further details. Est. Energy Needs: 4970-9252 kcal ( 25-30 kcal/kg BW). Est. Protein Needs: 71-85 gms/day ( 1.0-1.2 gms/kg BW). Will continue to monitor pertinent labs and reassess nutrient need prn Addendum: 07/08/19 at [address] Amended: Links added.
--- NOTE | 2019-07-08 13:25 | NUR ---
ACTIVITY Patient is ambulating with walker, walked 15 lab around unit with Danilo. Assisted patient back into chair.
[2019-07-08] MEDS: SODIUM CHLORIDE 0.9% 500 ML IV SCH (13:53)
--- NOTE | 2019-07-08 14:00 | NUR ---
MD Dr. Flowers at bedside updated on patient condition with new orders, MD to input into system. Dr. Flowers at bedside and removed chest tubes, patient tolerated well awaiting for chest x-ray.
--- NOTE | 2019-07-08 15:26 | NUR ---
SS consult for four wheel walker. Contacted [employer], [facility] contracted provider, and faxed clinical information including tracking number. Informed Intake department that pt would be today and to deliver equipment to the bedside. Contacted [facility] managed care department and notified of referral for home health. No other discharge needs Addendum: 07/08/19 at 1528 by CLAY GONZALEZ Amended: Links added.
--- NOTE | 2019-07-08 15:45 | NUR ---
ACTIVITY Patient ambulating with walker 20 laps around unit accompanied by Danilo physical therapist. Assisted patient back into bed. Patient tolerated well.
[2019-07-08 19:01] LABS: Urine Bacteria FEW /hpf (None Seen); Urine Blood Negative /uL (Negative); Urine Mucus FEW (None Seen); Urine Specific Gravity 1.014 (1.001-1.035); Urine WBC 123 /hpf (0 - 3)
--- NOTE | 2019-07-08 19:30 | NUR ---
Opening Shift Note Report received from day shift RN. Received pt sitting up in high fowlers position finishing dinner. at bed side. Full assessment done see interventions. Medial incision assessed, open to air, clean dry and intact, benign. Gauze to chest tube incision sites with sanguineous drainage noted. Pt on 3 lpm n.c. Pt denies any pain at this time. L 22g to wrist, patent and saline locked. Bed locked in lowest position. Call light within reach. Will continue to monitor.
[2019-07-08] MEDS: AMIODARONE HCL 900 MG in DEXTROSE 500 ML IV SCH (20:03)
--- NOTE | 2019-07-08 20:10 | NUR ---
AMBULATION PATIENT AMBULATED 17 TIMES AROUND ICU UNIT WITH USE OF WALKER, CONNECTED TO PORTABLE MONITOR AND OXYGEN. VITAL SIGNS ARE STABLE. NO DISTRESS NOTED, RESPIRATIONS EVEN AND UNLABORED. PATIENT ASSISTED BACK TO BED AND CONNECTED TO BEDSIDE MONITOR. WILL CONTINUE TO MONITOR.
[2019-07-09] VITALS (33 sets, daily range): BP systolic 87–126; BP diastolic 47–67
--- NOTE | 2019-07-09 | NUR ---
REPORT GIVEN AND CARE ENDORSED TO TOMÁS SWEENEY.
[2019-07-09 03:54] LABS: Potassium 4.4 mmol/L (3.5-5.1)
[2019-07-09 04:00] LABS: Albumin 2.8 g/dL (3.4-5.0); BUN/Creatinine Ratio 28.4; Bilirubin, Total 0.7 mg/dL (0.2-1.0); Calcium 8.9 mg/dL (8.5-10.1)
[2019-07-09 04:15] LABS: Hematocrit 28.9 % (41.0-53.0); Hemoglobin 9.9 g/dL (13.5-17.5); Mean Corpuscular Hemoglobin 30.6 pg (28.0-32.0); Mean Corpuscular Hgb Conc. 34.3 g/dL (32.0-36.0); Mean Corpuscular Volume 89.3 fL (80.0-100.0); Platelet Count (auto) 248 10^3/uL (140-450); Red Blood Cells 3.23 10^6/uL (4.5-5.90); Red Cell Distribution Width 14.4 % (11.8-14.3); White Blood Cell 8.7 10^3/uL (4.4-10.8)
[2019-07-09 04:23] LABS: Basophils % (manual) 0 (0.0-2.0); Blast Cells 0; Metamyelocytes % 0; Myelocytes % 0; Promyelocytes % 0; Reactive Lymphocytes 0
[2019-07-09 04:52] LABS: Eosinophils % (manual) 3 (0-7); Lymphocytes % (manual) 15 (10.0-50.0)
[2019-07-09 04:53] LABS: Band Neutrophils % (manual) 2; Monocytes % (manual) 6 (0-12)
[2019-07-09] MEDS: FUROSEMIDE 20 MG TAB PO SCH ×2 (05:33→18:05)
[2019-07-09] MEDS: ACCU-CHEK COMFORT CURVE STRIP VI SCH ×3 (06:25→17:00)
[2019-07-09] MEDS: glipiZIDE 5 MG TAB PO SCH ×2 (06:26→18:05)
[2019-07-09] MEDS: InsuLIN REG 1unit/0.01ml Soln (100units/ml) SC SCH ×3 (06:27→17:00)
[2019-07-09] MEDS: MILRINONE 20MG/100ML 100 ML IV SCH (06:28)
[2019-07-09] MEDS: ALBUTEROL SULF 2.5 MG/0.5ML(0.5%) NEB SOLN NEB SCH ×4 (06:41→18:05)
[2019-07-09] MEDS: IPRATROPIUM BROM 0.5 MG/2.5ML INH SOL NEB SCH ×4 (06:41→18:05)
[2019-07-09] MEDS: metFORMIN HYDROCHLORIDE 500 MG TAB PO SCH ×2 (08:00→18:00)
--- NOTE | 2019-07-09 08:15 | NUR ---
NUTRITION Patient received breakfast tray and eating, tolerating well.
[2019-07-09] MEDS: Glucerna Carbsteady SHAKE Vanilla 8oz PO SCH ×3 (08:24→18:04)
--- NOTE | 2019-07-09 09:45 | NUR ---
ACTIVITY Patient ambulated with walker 17 laps around unit with no incident. Patient tolerated well. Patient assisted to bedside chair.
[2019-07-09] MEDS: NITROGLYCERIN 0.4MG/HR TOPICAL PATCH TD SCH (10:00)
[2019-07-09] MEDS: LISINOPRIL 10 MG TAB PO SCH (10:00)
[2019-07-09] MEDS: DOCUSATE SOD 100 MG CAP PO SCH (10:00)
[2019-07-09] MEDS: METOPROLOL TARTRATE 25 MG TAB PO SCH (10:00)
[2019-07-09] MEDS: ASPirin 81 mg TAB PO SCH (10:18)
[2019-07-09] MEDS: FINASTERIDE 5 MG TAB PO SCH (10:18)
[2019-07-09] MEDS: POTASSIUM CHL 20 Meq TABLET PO SCH (10:18)
[2019-07-09] MEDS: PANTOPRAZOLE 40 MG TAB PO SCH (10:20)
[2019-07-09] MEDS: CHLORHEXIDINE 0.12% ORAL rinse 473ML MT SCH (10:23)
--- NOTE | 2019-07-09 11:00 | NUR ---
ELIMINATION Patient requested to get to the bedside commode. Patient has moderate formed stool. Assisted patient back into bedside chair.
--- NOTE | 2019-07-09 12:40 | NUR ---
NUTRITION Patient eating lunch tray tolerating well, Raquel at bedside.
--- NOTE | 2019-07-09 13:50 | NUR ---
BLUEPRINT ENGINEER BLUEPRINT ENGINEER Dago at bedside updated on patient condition with new orders to discharge patient with leos catheter. BLUEPRINT ENGINEER spoke to patient regarding plan of care and questions/concerns answered by BLUEPRINT ENGINEER.
[2019-07-09] MEDS: SODIUM CHLORIDE 0.9% 500 ML IV SCH (13:53)
[2019-07-09] MEDS ORDERED: POTA10TA51 PO (13:56)
[2019-07-09] MEDS ORDERED: ASPI81CH43 PO (13:56)
[2019-07-09] MEDS ORDERED: DOCU100C8 PO (13:56)
[2019-07-09] MEDS ORDERED: FURO20TA3 PO (13:56)
[2019-07-09] MEDS ORDERED: PANT40T PO (13:56)
--- NOTE | 2019-07-09 14:00 | NUR ---
MD Dr. Moncada at bedside updated on patient condition with new orders to discharge patient home once patient receives walker. MD spoke to patient regarding plan of care and questions /concerns answered by MD.
--- NOTE | 2019-07-09 14:30 | NUR ---
FOLLOW UP APPOINTMENT Called and spoke to Yoon at Dr. Flowres's office and scheduled appointment for July 17, 2019 at 1045.
--- NOTE | 2019-07-09 14:50 | NUR ---
FOLLOW UP APPOINTMENT Called and scheduled follow up appointment for urology clinic to have leos catheter exchange for 08/20/2019 at 0945. Informed them of exchange should be between 3-4 weeks this is the date given.
--- NOTE | 2019-07-09 15:15 | NUR ---
FOLLOW UP APPOINTMENT Called and scheduled appointment with Dr. Lu Tripathi for July 17 2019 at 0815.
--- NOTE | 2019-07-09 15:55 | NUR ---
FOOD SCIENCE PROFESSOR Called [employer] regarding walker was delivered but it was a two wheel walker instead of a four wheel walker. Sarita states " will call company to get correct one delivered." Pending discharge.
--- NOTE | 2019-07-09 16:00 | NUR ---
CONTINUUM SAT ACT INSTRUCTOR Melly Yu at bedside going over discharge at home after coronary bypass surgery.
--- NOTE | 2019-07-09 16:05 | NUR ---
CHEESE FACTORY WORKER [employer] called regarding four wheel walker states " called company and stated will deliver correct walker within the hour." Pending discharge.
--- NOTE | 2019-07-09 18:30 | NUR ---
CARDIAC DISCHARGE VIDEO Cardiac discharge video shown to patient and patient Raquel and all questions answered.
--- NOTE | 2019-07-09 19:30 | NUR ---
DISCHARGE Patient discharge home with WEI, , vital signs stable, no chest pain and instructions on after care given. Patient and patient both verbalized understanding. Four wheel walker discharged with patient.
== END 2019-07-09 19:30 | disposition home or self-care (01) | DRG 235 ==
LOC: TELE 06:17 → EDSTATUS 07:30 → ICU WEST 08:56
PROVIDERS: ADMIT Specialist; ATTEND Internal Medicine
PROC: 5A1935Z Respiratory Ventilation, Less than 24 Consecutive Hours (ICD-10-PCS; 2019-07-03)
PROC: 0BH17EZ Insertion of Endotracheal Airway into Trachea, Via Natural or Artificial Opening (ICD-10-PCS; 2019-07-03)
PROC: 5A09357 Assistance with Respiratory Ventilation, Less than 24 Consecutive Hours, Continuous Positive Airway Pressure (ICD-10-PCS; 2019-07-03)
PROC: 30233N1 Transfusion of Nonautologous Red Blood Cells into Peripheral Vein, Percutaneous Approach (ICD-10-PCS; 2019-07-03)
PROC: 30233R1 Transfusion of Nonautologous Platelets into Peripheral Vein, Percutaneous Approach (ICD-10-PCS; 2019-07-03)
PROC: 30233L1 Transfusion of Nonautologous Fresh Plasma into Peripheral Vein, Percutaneous Approach (ICD-10-PCS; 2019-07-03)
PROC: 02100K9 Bypass Coronary Artery, One Artery from Left Internal Mammary with Nonautologous Tissue Substitute, Open Approach (ICD-10-PCS; principal; 2019-07-04)
PROC: 021109W Bypass Coronary Artery, Two Arteries from Aorta with Autologous Venous Tissue, Open Approach (ICD-10-PCS; 2019-07-04)
PROC: 06BQ0ZZ Excision of Left Saphenous Vein, Open Approach (ICD-10-PCS; 2019-07-04)
PROC: 06BP0ZZ Excision of Right Saphenous Vein, Open Approach (ICD-10-PCS; 2019-07-04)
PROC: 5A09357 Assistance with Respiratory Ventilation, Less than 24 Consecutive Hours, Continuous Positive Airway Pressure (ICD-10-PCS; 2019-07-04)
PROC: 5A09357 Assistance with Respiratory Ventilation, Less than 24 Consecutive Hours, Continuous Positive Airway Pressure (ICD-10-PCS; 2019-07-05)
PROC: 5A09357 Assistance with Respiratory Ventilation, Less than 24 Consecutive Hours, Continuous Positive Airway Pressure (ICD-10-PCS; 2019-07-06)
PROC: 5A09357 Assistance with Respiratory Ventilation, Less than 24 Consecutive Hours, Continuous Positive Airway Pressure (ICD-10-PCS; 2019-07-07)
PROC: 5A09357 Assistance with Respiratory Ventilation, Less than 24 Consecutive Hours, Continuous Positive Airway Pressure (ICD-10-PCS; 2019-07-08)
PROC: 5A09357 Assistance with Respiratory Ventilation, Less than 24 Consecutive Hours, Continuous Positive Airway Pressure (ICD-10-PCS; 2019-07-09)
DX: I25.110 Atherosclerotic heart disease of native coronary artery with unstable angina pectoris (principal); J95.821 Acute postprocedural respiratory failure; E44.0 Moderate protein-calorie malnutrition; E11.9 Type 2 diabetes mellitus without complications; I48.91 Unspecified atrial fibrillation; I10 Essential (primary) hypertension; N40.0 Benign prostatic hyperplasia without lower urinary tract symptoms; Z79.84 Long term (current) use of oral hypoglycemic drugs; Z95.1 Presence of aortocoronary bypass graft; Z68.24 Body mass index [BMI] 24.0-24.9, adult
CPT/HCPCS: 36415; 36600; 71045; 80048; 80053; 81001; 82805; 82962; 83735; 84100; 85007; 85014; 85018; 85025; 85027; 85576; 85610; 85730; 86850; 86900; 86901; 86920; 87070; 87081; 87086; 87205; 93005; 94002; 94640; 94660; 97110; 97116; 97163; 97530; C1751; C1768; C9113; G0378; J0153; J0610; J0690; J1100; J1642; J1644; J1815; J2440; J2704; J2720; J3430; J3480; J7060; P9047

== ENCOUNTER 2019-07-19 10:08 | Emergency (ER) | payer OTHER ==
[~2019-07-19] VITALS: Ht 167.6 cm; Wt 71.7 kg
[~2019-07-19 10:08] MED LIST changes: +ASPI81CH43 PO; +DOCU100C8 PO; +FURO20TA3 PO; +PANT40T PO; +POTA10TA51 PO
[2019-07-19 10:32] VITALS: BP 128/68
== END 2019-07-19 11:45 | disposition home or self-care (01) ==
LOC: ER 10:08
DX: N39.0 Urinary tract infection, site not specified (principal); I11.0 Hypertensive heart disease with heart failure; I50.9 Heart failure, unspecified; E11.9 Type 2 diabetes mellitus without complications; Z95.1 Presence of aortocoronary bypass graft
CPT/HCPCS: 51702

== ENCOUNTER 2019-07-24 09:29 | Inpatient (IN) | payer OTHER ==
[~2019-07-24] VITALS: Ht 167.6 cm; Wt 69.8 kg
[2019-07-24] MEDS ORDERED: SODIUM CHLORIDE 0.9% 1,000 ML IV ONE (09:57)
[2019-07-24 10:11] LABS: Hematocrit 31.6 % (41.0-53.0); Hemoglobin 10.4 g/dL (13.5-17.5); Mean Corpuscular Hemoglobin 28.9 pg (28.0-32.0); Mean Corpuscular Hgb Conc. 32.8 g/dL (32.0-36.0); Mean Corpuscular Volume 88.1 fL (80.0-100.0); Platelet Count (auto) 450 10^3/uL (140-450); Red Blood Cells 3.58 10^6/uL (4.5-5.90); Red Cell Distribution Width 14.8 % (11.8-14.3); White Blood Cell 19.3 10^3/uL (4.4-10.8)
[2019-07-24 10:13] LABS: Basophils % (manual) 0 (0.0-2.0); Blast Cells 0; Eosinophils % (manual) 0 (0-7); Myelocytes % 0; Promyelocytes % 0; Reactive Lymphocytes 0
[2019-07-24 10:26] LABS: Albumin 2.6 g/dL (3.4-5.0); Calcium 8.6 mg/dL (8.5-10.1); Potassium 3.7 mmol/L (3.5-5.1)
[2019-07-24 10:30] LABS: BUN/Creatinine Ratio 12.5; Bilirubin, Total 0.6 mg/dL (0.2-1.0); Total Protein 6.5 g/dL (6.4-8.2)
[2019-07-24 10:33] LABS: Band Neutrophils % (manual) 6; Lymphocytes % (manual) 3 (10.0-50.0); Metamyelocytes % 1; Monocytes % (manual) 4 (0-12)
[2019-07-24] MEDS ORDERED: cefTRIAXone 1GM/50ML D5W 50 ML IV ONE (10:45)
[2019-07-24] MEDS ORDERED: AZITHROMYCIN 500MG/ 250ML 250 ML IV ONE (10:45)
[2019-07-24 11:27] LABS: Urine Bacteria MANY /hpf (None Seen); Urine Blood 1+ /uL (Negative); Urine Hyaline Cast FEW /lpf (0 - 2); Urine Mucus FEW (None Seen); Urine Specific Gravity 1.015 (1.001-1.035); Urine WBC 68 /hpf (0 - 3)
[2019-07-24 11:32] LABS: Lactic Acid w/Reflex 3.5 mmol/L (0.4-2.0)
[2019-07-24] MEDS ORDERED: DEXTROSE (50%) 50ML SYRG IV PRN (12:15)
[2019-07-24] MEDS ORDERED: NITROGLYCERIN 0.4 MG SL TAB SL PRN (12:15)
[2019-07-24] MEDS ORDERED: ONDANSETRON HCL 4 MG/2 ML VIAL IV PRN (12:15)
[2019-07-24] MEDS ORDERED: ACETAMINOPHEN 500 MG TAB PO PRN (12:15)
[2019-07-24] MEDS ORDERED: HYDROcodone-ACET 5/325MG TAB PO PRN (12:15)
[2019-07-24] MEDS ORDERED: MORPHINE SULF INJ 2 MG/ML SYRINGE 1ML IV PRN ×2 (12:15)
--- NOTE | 2019-07-24 13:15 | NUR ---
RECEIVED PATIENT FROM ER, PATIENT ORIENTED TO ROOM, CALL LIGHT BEDSIDE, BED IN LOCKED AND LOWEST POSITION AND BRAKE SET. PATIENT HAS EXISTING IBRAHIM FROM HOME. NO COMPLAINTS OF PAIN OR DISCOMFORT AT THIS TIME. VS 87/40, 96HR, 20RR, 97%, 97.9. WILL CONTINUE TO MONITOR Q1H AND PRN.
[2019-07-24 13:30] VITALS: BP 87/40
[2019-07-24 14:20] VITALS: BP 98/48
--- NOTE | 2019-07-24 15:45 | NUR ---
SENT MRSA SWAB TO LAB
--- NOTE | 2019-07-24 16:01 | NUR ---
ORDER FROM ER "OK TO CHANGE IBRAHIM". PATIENT STATED IBRAHIM WAS JUST REPLACED 4 DAYS AGO IN [facility] ER AND HE DOES NOT WANT TO HAVE IT REPLACED AGAIN. EDUCATED PATIENT ON UTI AND IBRAHIM PLACEMENT, PATIENT STATED HE WOULD LIKE TO KEEP THE CATHETER HE HAS.
[2019-07-24 16:37] VITALS: BP 138/62
[2019-07-24] MEDS: SODIUM CHLORIDE 0.9% 1,000 ML IV SCH (16:42)
[2019-07-24] MEDS: InsuLIN REG 1unit/0.01ml Soln (100units/ml) SC SCH ×2 (17:00→22:00)
[2019-07-24] MEDS: ACCU-CHEK COMFORT CURVE STRIP VI SCH ×2 (17:28→22:00)
--- NOTE | 2019-07-24 17:55 | NUR ---
RECONCILED PATIENTS HOME MEDICATIONS OVER PHONE WITH PATIENT'S , WEI.
[2019-07-24] MEDS: LISINOPRIL 10 MG TAB PO SCH (18:00)
[2019-07-24] MEDS: ATORVASTATIN 20 MG TAB PO SCH (18:10)
--- NOTE | 2019-07-24 20:00 | NUR ---
Opening Shift Note Assumed care of patient, awake and alert. No S/S of distress/SOB or pain. Instructed on POC and to call for assist PRN, will continue to monitor for changes Q1hr and PRN.
[2019-07-24] MEDS: DOCUSATE SOD 100 MG CAP PO SCH (21:44)
[2019-07-24 21:47] VITALS: BP 125/55
[2019-07-24] MEDS: METOPROLOL TARTRATE 25 MG TAB PO SCH (22:00)
[2019-07-25] MEDS: SODIUM CHLORIDE 0.9% 1,000 ML IV SCH ×3 (01:33→20:24)
[2019-07-25 05:05] VITALS: BP 105/59
[2019-07-25 06:11] LABS: Basophils # (auto) 0 10 ^3/uL (0-0.2); Basophils % (auto) 0.2 % (0.0-2.0); Eosinophils # (auto) 0 10 ^3/uL (0-0.8); Eosinophils % (auto) 0.4 % (0.0-7.0); Hematocrit 25.5 % (41.0-53.0); Hemoglobin 8.6 g/dL (13.5-17.5); Lymphocytes # (auto) 0.5 10 ^3/uL (0.4-5.4); Lymphocytes % (auto) 4.3 % (10.0-50.0); Mean Corpuscular Hemoglobin 29.5 pg (28.0-32.0); Mean Corpuscular Hgb Conc. 33.7 g/dL (32.0-36.0); Mean Corpuscular Volume 87.3 fL (80.0-100.0); Monocytes # (auto) 0.5 10 ^3/uL (0-1.3); Monocytes % (auto) 5.1 % (0.0-12.0); Neutrophils # (auto) 9.4 10 ^3/uL (1.6-8.6); Platelet Count (auto) 293 10^3/uL (140-450); Red Blood Cells 2.92 10^6/uL (4.5-5.90); Red Cell Distribution Width 14.7 % (11.8-14.3); White Blood Cell 10.5 10^3/uL (4.4-10.8)
[2019-07-25] MEDS: ACCU-CHEK COMFORT CURVE STRIP VI SCH ×4 (06:14→21:56)
[2019-07-25] MEDS: InsuLIN REG 1unit/0.01ml Soln (100units/ml) SC SCH ×4 (06:14→21:56)
[2019-07-25 06:32] LABS: Calcium 7.6 mg/dL (8.5-10.1); Potassium 3.3 mmol/L (3.5-5.1)
[2019-07-25 06:34] LABS: BUN/Creatinine Ratio 14.5
[2019-07-25 08:00] VITALS: BP 125/55
--- NOTE | 2019-07-25 08:00 | NUR ---
ASSESSMENT NOTE PT IS ALERT ORIENTED X4, RESTING IN BED COMFORTABLY, ABLE TO SELF REPOSITION AND IDENTIFY HIS DEMANDS, OPTIFOAM NOTED AT THE SACRUM AREA, REDNESS NOTED AT THE SACRUM AREA, PAIN 0/10, CALL LIGHT WITHIN REACH
[2019-07-25 08:37] VITALS: BP 123/99
[2019-07-25] MEDS ORDERED: cefTRIAXone 1GM/50ML D5W 50 ML IV SCH (09:00)
[2019-07-25] MEDS: ERTAPENEM SOD INJ 1 GM in SODIUM CHL 0.9% 50 ML IV SCH (09:18)
[2019-07-25] MEDS: FAMOTIDINE 20 MG TAB PO SCH (09:18)
[2019-07-25] MEDS: DOCUSATE SOD 100 MG CAP PO SCH ×2 (09:20→21:56)
[2019-07-25] MEDS: FINASTERIDE 5 MG TAB PO SCH (09:20)
[2019-07-25] MEDS: METOPROLOL TARTRATE 25 MG TAB PO SCH ×2 (09:21→21:55)
[2019-07-25] MEDS: ASPirin 81 mg TAB PO SCH (09:21)
--- NOTE | 2019-07-25 10:00 | NUR ---
IBRAHIM CATHETER CHANGE LEG BAG TO A GRAVITY BAG
[2019-07-25] MEDS ORDERED: POTASSIUM CHL 20 Meq TABLET PO ONE (10:30)
--- NOTE | 2019-07-25 10:50 | NUR ---
PT IS AMBULATING IN THE HALLWAYS WITH THE HOME WALKER
[2019-07-25 10:55] LABS: Magnesium 1.6 mg/dL (1.6-2.6)
[2019-07-25 10:58] LABS: Phosphorus 3.1 mg/dL (2.5-4.90)
--- NOTE | 2019-07-25 11:33 | NUR ---
DR MENDOZA IS HERE MADE AWARE THAT THE FIRST BOTTLE OF THE BLOOD CULTURE IS GRAM NEGATIVE DOMO
[2019-07-25] MEDS ORDERED: MAGNESIUM OXIDE 400 MG TAB PO ONE (11:45)
--- NOTE | 2019-07-25 11:45 | NUR ---
DR ROSS AT BED SIDE EXAMINING PATIENT'S CHEST INCISIONS WITH A CLEARANCE OF POINT OF VIEW
[2019-07-25 11:54] LABS: INR 1.14 (0.9-1.15); Partial Thromboplastin Time 33.3 sec (23.64-32.05)
--- NOTE | 2019-07-25 12:49 | NUR ---
DR SARABIA AT BED SIDE FOLLOWING UP AND EXAMINING PT
[2019-07-25 13:00] VITALS: BP 101/55
--- NOTE | 2019-07-25 13:04 | NUR ---
PAGE DR MENDOZA PER DR SARABIA PT MAY NEED A UROLOGY CONSULT
--- NOTE | 2019-07-25 15:00 | NUR ---
PT WAS ABLE TO GET OUT OF BED AND AMBULATE AROUND HIS BED AND HIS ROOM, TOLERATED WELL, OXYGEN 2 L NC
[2019-07-25 16:40] VITALS: BP 117/60
--- NOTE | 2019-07-25 17:09 | NUR ---
INCENTIVE SPIROMETER GIVEN TO PT, EDUCATED HOW TO USE IT AND WHY, VERBALIS UNDERSTANDING
[2019-07-25] MEDS: LISINOPRIL 10 MG TAB PO SCH (18:00)
[2019-07-25] MEDS: ATORVASTATIN 20 MG TAB PO SCH (18:15)
[2019-07-25 21:17] VITALS: BP 133/72
[2019-07-25] MEDS: MAGNESIUM OXIDE 400 MG TAB PO SCH (21:55)
[2019-07-26 05:11] VITALS: BP 130/75
[2019-07-26 06:30] LABS: Basophils # (auto) 0 10 ^3/uL (0-0.2); Basophils % (auto) 0.5 % (0.0-2.0); Eosinophils # (auto) 0.2 10 ^3/uL (0-0.8); Eosinophils % (auto) 3.1 % (0.0-7.0); Hematocrit 26.8 % (41.0-53.0); Lymphocytes # (auto) 0.6 10 ^3/uL (0.4-5.4); Lymphocytes % (auto) 7.6 % (10.0-50.0); Mean Corpuscular Hemoglobin 29.2 pg (28.0-32.0); Mean Corpuscular Hgb Conc. 33.4 g/dL (32.0-36.0); Mean Corpuscular Volume 87.3 fL (80.0-100.0); Monocytes # (auto) 0.6 10 ^3/uL (0-1.3); Monocytes % (auto) 7.9 % (0.0-12.0); Neutrophils # (auto) 6.3 10 ^3/uL (1.6-8.6); Neutrophils % (auto) 80.9 % (37.0-80.0); Platelet Count (auto) 319 10^3/uL (140-450); Red Blood Cells 3.07 10^6/uL (4.5-5.90); Red Cell Distribution Width 14.3 % (11.8-14.3); White Blood Cell 7.8 10^3/uL (4.4-10.8)
[2019-07-26] MEDS: ACCU-CHEK COMFORT CURVE STRIP VI SCH ×3 (06:38→18:45)
[2019-07-26] MEDS: InsuLIN REG 1unit/0.01ml Soln (100units/ml) SC SCH ×3 (06:38→17:00)
[2019-07-26 06:49] LABS: Calcium 8.2 mg/dL (8.5-10.1)
[2019-07-26 06:51] LABS: BUN/Creatinine Ratio 13.5
[2019-07-26 08:00] VITALS: BP 137/72
[2019-07-26 08:58] VITALS: BP 137/72
[2019-07-26] MEDS: FAMOTIDINE 20 MG TAB PO SCH (09:50)
[2019-07-26] MEDS: ERTAPENEM SOD INJ 1 GM in SODIUM CHL 0.9% 50 ML IV SCH (09:50)
[2019-07-26] MEDS: METOPROLOL TARTRATE 25 MG TAB PO SCH (09:51)
[2019-07-26] MEDS: FINASTERIDE 5 MG TAB PO SCH (09:51)
[2019-07-26] MEDS: MAGNESIUM OXIDE 400 MG TAB PO SCH (09:52)
[2019-07-26] MEDS: ASPirin 81 mg TAB PO SCH (09:52)
[2019-07-26 10:00] VITALS: BP 137/72
[2019-07-26] MEDS: DOCUSATE SOD 100 MG CAP PO SCH (10:00)
--- NOTE | 2019-07-26 10:24 | NUR ---
Leena from lab just notified me patient is positive for Ecoli/ESBL in urine. Will notify MD. Patient is already in Contact precaution.
[2019-07-26] MEDS ORDERED: MEROPENEM 1GM IVPB 50 ML IV SCH (11:00)
--- NOTE | 2019-07-26 11:40 | NUR ---
Patient refused Insulin.
--- NOTE | 2019-07-26 11:41 | NUR ---
Patient refused to sign medicare discharge rights. Patient stated he will not sign any documents and ask me to leave his room.
[2019-07-26 13:00] VITALS: BP 125/67
--- NOTE | 2019-07-26 13:00 | NUR ---
Orders to remove Indwelling Mcguire catheter received.
--- NOTE | 2019-07-26 14:58 | NUR ---
I faxed home IV ATB order to [facility].
--- NOTE | 2019-07-26 15:26 | NUR ---
D/C Planning Per consult for home health service regarding IV abx with Meropenem 1g IV abx Q12 hrs for 14 days. Clinical information was reviewed and approved by the medical group. [employer] Lynette will work on IV abx. Faxed Clinical information to [facility] home health. Per Brandon with [facility]:) they will resume service for patient within 24hrs upon d/c day. Nurse Mariposa who was covering Nurse Vibha was informed of d/c plan. Addendum: 07/26/19 at 1533 by ARABELLA NINA Amended: Links added.
--- NOTE | 2019-07-26 15:38 | NUR ---
I spoke with Jose Martin at [facility] [phone]-provided him with additional clinical information as requested-he said they are working on this order.
--- NOTE | 2019-07-26 16:00 | NUR ---
Mcguire catheter dc'd Order to discontinue Mcguire catheter. Mcguire dc'd with clean technique following deflation of balloon. Patient tolerated well with no complaints of pain. Continue care.
[2019-07-26] MEDS: SODIUM CHLORIDE 0.9% 1,000 ML IV SCH (17:01)
--- NOTE | 2019-07-26 17:04 | NUR ---
Midline Placement: Patient educated on need for midline placement. All risks and benefits explained and all questions and concerns addresses prior to procedure. 18g/10 cm midline inserted via right brachial vein using Ultrasound. Sterile technique utilized. Lumen flushed easily with NS using proper technique. Midline secured with saline lock; biodisc and occlusive dressing applied. Primary RN notified. Midline lot #[id number].
--- NOTE | 2019-07-26 17:07 | NUR ---
I spoke with Jose Martin at [facility], he said everything is set on their end, they spoke with patient's Raquel and [facility] I called Dr. Cooney and made him aware-he will place the discharge order. I made nurse Vibha aware and provided her with phone numbers for [facility] [phone] and [facility] [phone] to give to the patient/family.
--- NOTE | 2019-07-26 17:16 | NUR ---
Orders received to discharge patient. Home health with [facility] is set up per Lynette. [facility] [phone] [facility] [phone]
[2019-07-26 17:38] VITALS: BP 125/67
[2019-07-26] MEDS: LISINOPRIL 10 MG TAB PO SCH (18:00)
[2019-07-26] MEDS: ATORVASTATIN 20 MG TAB PO SCH (18:00)
--- NOTE | 2019-07-26 18:36 | NUR ---
MD Cooney is requesting Mcguire catheter to be inserted. Addendum: 07/26/19 at 1840 by Rose Niteo RN 1720 MD Cooney is requesting Mcguire catheter to be inserted. 1743 Mcguire catheter insertion Patient assessed and determined to be in need of Mcguire catheter. Order obtained from Dr. Cooney Patient educated on catheter and reason for insertion. All questions answered. Mcguire catheter 14 gauge Latvian inserted with clean sterile technique. Patient tolerated well. Leg bag applied. patient educated on Mcguire catheter and leg bag.Patient verbalized understanding. Extra Leg bag and Mcguire catheter wipes provided.
--- NOTE | 2019-07-26 18:40 | NUR ---
Discharge instructions given as ordered. Encourage to follow up with PMD as instructed. All questions and concerns addressed. Patient verbalized understanding. Medication reconciliation form completed and copy given to patient. IV removed with catheter intact, pressure dressing applied. Telemetry unit returned to ICU. Patient ambulated to vehicle with patient's own personal walker and with all personal belongings, accompanied by RN. No distress noted at time of departure.
[2019-07-27] MEDS ORDERED: ENOXAPARIN SOD 40 MG/0.4 ML SYRINGE SC SCH (10:00)
== END 2019-07-26 18:45 | disposition home health service (06) | DRG 698 ==
LOC: ER 09:29 → TELE 09:30 → TELE-EAST 13:09
PROVIDERS: ADMIT Nurse Practitioner Acute Care; ATTEND Internal Medicine
DX: T83.511A Infection and inflammatory reaction due to indwelling urethral catheter, initial encounter (principal); A41.9 Sepsis, unspecified organism; J18.9 Pneumonia, unspecified organism; E44.0 Moderate protein-calorie malnutrition; N30.00 Acute cystitis without hematuria; J93.83 Other pneumothorax; I25.708 Atherosclerosis of coronary artery bypass graft(s), unspecified, with other forms of angina pectoris; E11.21 Type 2 diabetes mellitus with diabetic nephropathy; N18.3 Chronic kidney disease, stage 3 (moderate); N40.0 Benign prostatic hyperplasia without lower urinary tract symptoms; I25.10 Atherosclerotic heart disease of native coronary artery without angina pectoris; E78.5 Hyperlipidemia, unspecified; I12.9 Hypertensive chronic kidney disease with stage 1 through stage 4 chronic kidney disease, or unspecified chronic kidney disease; E11.22 Type 2 diabetes mellitus with diabetic chronic kidney disease; Y84.6 Urinary catheterization as the cause of abnormal reaction of the patient, or of later complication, without mention of misadventure at the time of the procedure; Y92.89 Other specified places as the place of occurrence of the external cause; Z68.24 Body mass index [BMI] 24.0-24.9, adult; Z79.899 Other long term (current) drug therapy
CPT/HCPCS: 36415; 71045; 80048; 80053; 80061; 81001; 82962; 83036; 83605; 83735; 84100; 84484; 85007; 85025; 85027; 85610; 85730; 87040; 87076; 87081; 87086; 87088; 87186; 93005; G0378; J0696; J1335; J2185

== ENCOUNTER 2019-09-05 08:27 | Day surgery (SDC) | payer OTHER ==
[2019-09-03 12:08] LABS: Urine Bacteria NONE SEEN /hpf (None Seen); Urine Blood 1+ /uL (Negative); Urine Hyaline Cast FEW /lpf (0 - 2); Urine Mucus FEW (None Seen); Urine WBC 59 /hpf (0 - 3)
[2019-09-03 12:11] LABS: Basophils # (auto) 0 10 ^3/uL (0-0.2); Basophils % (auto) 0.4 % (0.0-2.0); Eosinophils # (auto) 0.1 10 ^3/uL (0-0.8); Eosinophils % (auto) 1.9 % (0.0-7.0); Hematocrit 42.9 % (41.0-53.0); Hemoglobin 13.7 g/dL (13.5-17.5); Lymphocytes # (auto) 1.2 10 ^3/uL (0.4-5.4); Lymphocytes % (auto) 16.5 % (10.0-50.0); Mean Corpuscular Hemoglobin 28.1 pg (28.0-32.0); Mean Corpuscular Volume 87.8 fL (80.0-100.0); Monocytes # (auto) 0.5 10 ^3/uL (0-1.3); Monocytes % (auto) 7.4 % (0.0-12.0); Neutrophils # (auto) 5.5 10 ^3/uL (1.6-8.6); Neutrophils % (auto) 73.8 % (37.0-80.0); Platelet Count (auto) 293 10^3/uL (140-450); Red Blood Cells 4.88 10^6/uL (4.5-5.90); Red Cell Distribution Width 16.1 % (11.8-14.3); White Blood Cell 7.5 10^3/uL (4.4-10.8)
[2019-09-03 12:19] LABS: INR 0.96 (0.9-1.15); Partial Thromboplastin Time 26.1 sec (23.64-32.05)
[2019-09-03 12:21] LABS: Albumin 3.4 g/dL (3.4-5.0); BUN/Creatinine Ratio 20.6; Potassium 4.2 mmol/L (3.5-5.1)
[2019-09-03 12:24] LABS: Bilirubin, Total 0.3 mg/dL (0.2-1.0); Total Protein 7.2 g/dL (6.4-8.2)
[~2019-09-05] VITALS: Ht 167.6 cm; Wt 71.7 kg
[~2019-09-05 08:27] MED LIST changes: -DOCU100C8 PO; -FURO20TA3 PO; -POTA10TA51 PO
[2019-09-05] MEDS ORDERED: CIPROFLOXACIN 400MG/200ML 200 ML IV ONE (09:00)
[2019-09-05] MEDS ORDERED: TETRACAINE 1% INJ 2 ML VIAL IJ ONE (11:04)
[2019-09-05] MEDS ORDERED: fentaNYL CITRATE 100 MCG/2 ML VL ONE (11:11)
[2019-09-05] MEDS ORDERED: MIDAZOLAM HCL 1MG/1ML-2 ML VIAL ONE ×2 (11:11→11:54)
[2019-09-05] MEDS ORDERED: ONDANSETRON HCL 4 MG/2 ML VIAL IV PRN (11:15)
[2019-09-05] MEDS ORDERED: HYDROmorphone HCL 2 MG/ML VL IV PRN (11:15)
[2019-09-05] MEDS ORDERED: ePHEDrine SULFATE 50 MG/ML AMP IV PRN (11:15)
[2019-09-05] MEDS ORDERED: ACCU-CHEK COMFORT CURVE STRIP VI ONE (11:15)
[2019-09-05] MEDS ORDERED: MORPHINE SULFATE 4 MG/ML SYR/VIAL IV PRN (11:15)
[2019-09-05] MEDS ORDERED: MIDAZOLAM HCL 1MG/1ML-2 ML VIAL IV PRN (11:15)
[2019-09-05] MEDS ORDERED: DexAMETHasone SOD PHOS 10MG/1ML VIAL INJ ONE (11:53)
[2019-09-05] MEDS ORDERED: PROPOFOL 10 MG/ML 20 ML IV ONE (11:53)
[2019-09-05] MEDS ORDERED: LABETALOL HCL 5 MG/ML 4ML SYRINGE IV ONE (14:25)
[2019-09-05] MEDS: LABETALOL HCL 5 MG/ML 4ML SYRINGE IV PRN ×2 (14:28→14:46)
[2019-09-05 18:38] VITALS: BP 159/77
== END 2019-09-05 18:51 | disposition home or self-care (01) ==
LOC: SUR 08:27
PROVIDERS: ATTEND Urology
DX: R33.9 Retention of urine, unspecified (principal); N40.1 Benign prostatic hyperplasia with lower urinary tract symptoms; I50.9 Heart failure, unspecified; R06.09 Other forms of dyspnea; I10 Essential (primary) hypertension; E11.9 Type 2 diabetes mellitus without complications; Z98.890 Other specified postprocedural states; Z79.899 Other long term (current) drug therapy
CPT/HCPCS: 36415; 52601; 80053; 81001; 82962; 85025; 85610; 85730; 88305; 88312; 88313; 88342; J0744; J1100; J2250; J2704; J3010; J3490

== ENCOUNTER → 2019-09-30 | Outpatient (CLI) | payer OTHER ==
[2019-09-30 09:30] LABS: Calcium 8.2 mg/dL (8.5-10.1); Potassium 3.8 mmol/L (3.5-5.1)
== END | disposition home or self-care (01) ==
LOC: LAB 08:35
PROVIDERS: ATTEND Internal Medicine
DX: I10 Essential (primary) hypertension (principal); I25.10 Atherosclerotic heart disease of native coronary artery without angina pectoris
CPT/HCPCS: 36415; 80048

== ENCOUNTER → 2019-12-16 | Outpatient (CLI) | payer OTHER ==
[~2019-12-16] MED LIST changes: +LISI-648 PO; -LISI10TA6 PO
[2019-12-16 08:15] LABS: Basophils # (auto) 0 10 ^3/uL (0-0.2); Basophils % (auto) 0.7 % (0.0-2.0); Eosinophils # (auto) 0.2 10 ^3/uL (0-0.8); Eosinophils % (auto) 3.5 % (0.0-7.0); Hematocrit 40.7 % (41.0-53.0); Hemoglobin 13.8 g/dL (13.5-17.5); Lymphocytes # (auto) 1.2 10 ^3/uL (0.4-5.4); Lymphocytes % (auto) 24.5 % (10.0-50.0); Mean Corpuscular Hemoglobin 29.2 pg (28.0-32.0); Mean Corpuscular Volume 85.8 fL (80.0-100.0); Monocytes # (auto) 0.4 10 ^3/uL (0-1.3); Monocytes % (auto) 8.3 % (0.0-12.0); Neutrophils # (auto) 3.1 10 ^3/uL (1.6-8.6); Nucleated Red Blood Cells % 0.1 %; Platelet Count (auto) 235 10^3/uL (140-450); Red Blood Cells 4.75 10^6/uL (4.5-5.90); Red Cell Distribution Width 15.3 % (11.8-14.3); Urine Bacteria NONE SEEN /hpf (None Seen); Urine Blood Negative /uL (Negative); Urine Mucus FEW (None Seen); Urine Specific Gravity 1.013 (1.001-1.035); Urine WBC 3 /hpf (0 - 3)
[2019-12-16 08:33] LABS: Potassium 4.1 mmol/L (3.5-5.1)
[2019-12-16 08:45] LABS: Albumin 3.1 g/dL (3.4-5.0); BUN/Creatinine Ratio 12.5; Bilirubin, Total 0.4 mg/dL (0.2-1.0); Calcium 8.2 mg/dL (8.5-10.1)
== END | disposition home or self-care (01) ==
LOC: LAB 07:34
PROVIDERS: ATTEND Physician Assistant
DX: E11.65 Type 2 diabetes mellitus with hyperglycemia (principal); N40.0 Benign prostatic hyperplasia without lower urinary tract symptoms; E78.5 Hyperlipidemia, unspecified; I10 Essential (primary) hypertension; I24.9 Acute ischemic heart disease, unspecified; Z90.79 Acquired absence of other genital organ(s)
CPT/HCPCS: 36415; 80053; 80061; 81001; 83036; 84153; 85025

== ENCOUNTER → 2020-01-27 | Outpatient (CLI) | payer OTHER ==
[2020-01-27 07:25] LABS: Basophils # (auto) 0 10 ^3/uL (0-0.2); Basophils % (auto) 0.7 % (0.0-2.0); Eosinophils # (auto) 0.2 10 ^3/uL (0-0.8); Eosinophils % (auto) 3.8 % (0.0-7.0); Hematocrit 44.9 % (41.0-53.0); Hemoglobin 15.2 g/dL (13.5-17.5); Lymphocytes # (auto) 1.2 10 ^3/uL (0.4-5.4); Lymphocytes % (auto) 18.7 % (10.0-50.0); Mean Corpuscular Hemoglobin 29.5 pg (28.0-32.0); Mean Corpuscular Hgb Conc. 33.9 g/dL (32.0-36.0); Monocytes # (auto) 0.5 10 ^3/uL (0-1.3); Neutrophils # (auto) 4.6 10 ^3/uL (1.6-8.6); Neutrophils % (auto) 69.8 % (37.0-80.0); Nucleated Red Blood Cells % 0.1 %; Platelet Count (auto) 229 10^3/uL (140-450); Red Blood Cells 5.16 10^6/uL (4.5-5.90); Red Cell Distribution Width 14.6 % (11.8-14.3); White Blood Cell 6.6 10^3/uL (4.4-10.8)
[2020-01-27 08:09] LABS: Albumin 3.5 g/dL (3.4-5.0); Calcium 8.6 mg/dL (8.5-10.1); Potassium 4.1 mmol/L (3.5-5.1)
[2020-01-27 08:13] LABS: BUN/Creatinine Ratio 13.2; Bilirubin, Total 0.4 mg/dL (0.2-1.0); Total Protein 6.4 g/dL (6.4-8.2)
== END | disposition home or self-care (01) ==
LOC: LAB 07:11
PROVIDERS: ATTEND Nurse Practitioner Acute Care
DX: I10 Essential (primary) hypertension (principal); E78.5 Hyperlipidemia, unspecified
CPT/HCPCS: 36415; 80053; 80061; 85025

== ENCOUNTER → 2020-05-21 | Outpatient (CLI) | payer OTHER | END | disposition home or self-care (01) | LOC: LAB 08:57 | PROVIDERS: ATTEND Physician Assistant | DX: D36.12 Benign neoplasm of peripheral nerves and autonomic nervous system, upper limb, including shoulder (principal); D22.9 Melanocytic nevi, unspecified; D23.9 Other benign neoplasm of skin, unspecified; L57.0 Actinic keratosis; L91.9 Hypertrophic disorder of the skin, unspecified ==

== ENCOUNTER → 2020-10-13 | Outpatient (CLI) | payer OTHER ==
[~2020-10-13] MED LIST changes: -LISI-648 PO; +LISI-716 PO
== END | disposition home or self-care (01) ==
LOC: LAB 08:13
PROVIDERS: ATTEND Urology
DX: N40.0 Benign prostatic hyperplasia without lower urinary tract symptoms (principal)
CPT/HCPCS: 84153

== ENCOUNTER → 2020-12-16 | Outpatient (CLI) | payer OTHER ==
[2020-12-16 08:05] LABS: Basophils # (auto) 0 10 ^3/uL (0-0.2); Basophils % (auto) 0.6 % (0.0-2.0); Eosinophils # (auto) 0.2 10 ^3/uL (0-0.8); Eosinophils % (auto) 3.1 % (0.0-7.0); Hematocrit 44.4 % (41.0-53.0); Hemoglobin 15.2 g/dL (13.5-17.5); Lymphocytes # (auto) 1.3 10 ^3/uL (0.4-5.4); Lymphocytes % (auto) 19.5 % (10.0-50.0); Mean Corpuscular Hemoglobin 30.1 pg (28.0-32.0); Mean Corpuscular Hgb Conc. 34.3 g/dL (32.0-36.0); Monocytes # (auto) 0.6 10 ^3/uL (0-1.3); Monocytes % (auto) 9.2 % (0.0-12.0); Neutrophils # (auto) 4.4 10 ^3/uL (1.6-8.6); Neutrophils % (auto) 67.6 % (37.0-80.0); Red Blood Cells 5.05 10^6/uL (4.5-5.90); Red Cell Distribution Width 13.2 % (11.8-14.3); White Blood Cell 6.5 10^3/uL (4.4-10.8)
[2020-12-16 08:51] LABS: Albumin 3.5 g/dL (3.4-5.0); Potassium 4.5 mmol/L (3.5-5.1)
[2020-12-16 08:56] LABS: Bilirubin, Total 0.4 mg/dL (0.2-1.0); Total Protein 6.7 g/dL (6.4-8.2)
== END | disposition home or self-care (01) ==
LOC: LAB 07:08
PROVIDERS: ATTEND Nurse Practitioner Family
DX: I12.9 Hypertensive chronic kidney disease with stage 1 through stage 4 chronic kidney disease, or unspecified chronic kidney disease (principal); E11.22 Type 2 diabetes mellitus with diabetic chronic kidney disease; N18.30 Chronic kidney disease, stage 3 unspecified; N40.1 Benign prostatic hyperplasia with lower urinary tract symptoms; E78.5 Hyperlipidemia, unspecified
CPT/HCPCS: 36415; 80053; 80061; 82043; 83036; 84153; 85025

== ENCOUNTER → 2021-06-07 | Outpatient (CLI) | payer OTHER ==
[2021-06-07 07:13] LABS: Urine Bacteria NONE SEEN /hpf (None Seen); Urine Blood Negative /uL (Negative); Urine Specific Gravity 1.011 (1.001-1.035); Urine WBC 2 /hpf (0 - 3)
[2021-06-07 08:43] LABS: Basophils # (auto) 0.1 10 ^3/uL (0-0.2); Eosinophils # (auto) 0.4 10 ^3/uL (0-0.8); Eosinophils % (auto) 7.1 % (0.0-7.0); Hematocrit 39.3 % (41.0-53.0); Hemoglobin 13.2 g/dL (13.5-17.5); Lymphocytes # (auto) 1.1 10 ^3/uL (0.4-5.4); Lymphocytes % (auto) 18.2 % (10.0-50.0); Mean Corpuscular Hemoglobin 29.9 pg (28.0-32.0); Mean Corpuscular Hgb Conc. 33.6 g/dL (32.0-36.0); Monocytes # (auto) 0.5 10 ^3/uL (0-1.3); Neutrophils # (auto) 3.8 10 ^3/uL (1.6-8.6); Neutrophils % (auto) 64.7 % (37.0-80.0); Nucleated Red Blood Cells % 0.1 %; Red Blood Cells 4.42 10^6/uL (4.5-5.90); Red Cell Distribution Width 14.4 % (11.8-14.3); White Blood Cell 5.9 10^3/uL (4.4-10.8)
[2021-06-07 08:45] LABS: Potassium 4.1 mmol/L (3.5-5.1)
[2021-06-07 09:04] LABS: Albumin 3.5 g/dL (3.4-5.0); BUN/Creatinine Ratio 16.7; Bilirubin, Total 0.5 mg/dL (0.2-1.0); Calcium 8.8 mg/dL (8.5-10.1); Total Protein 6.5 g/dL (6.4-8.2)
== END | disposition home or self-care (01) ==
LOC: LAB 06:48
PROVIDERS: ATTEND Nurse Practitioner Family
DX: Z01.818 Encounter for other preprocedural examination (principal)
CPT/HCPCS: 36415; 80053; 81001; 85025

== ENCOUNTER → 2021-06-09 | Outpatient (CLI) | payer OTHER | END | disposition home or self-care (01) | LOC: LAB 09:15 | PROVIDERS: ATTEND Physician Assistant | DX: D22.9 Melanocytic nevi, unspecified (principal); L82.1 Other seborrheic keratosis | CPT/HCPCS: 88302 ==

== ENCOUNTER → 2021-08-30 | Outpatient (CLI) | payer OTHER ==
[2021-08-30 08:38] LABS: Urine Blood Negative /uL (Negative)
[2021-08-30 08:42] LABS: Basophils # (auto) 0.1 10 ^3/uL (0-0.2); Basophils % (auto) 1.3 % (0.0-2.0); Eosinophils # (auto) 0.3 10 ^3/uL (0-0.8); Eosinophils % (auto) 6.4 % (0.0-7.0); Hematocrit 41.4 % (41.0-53.0); Hemoglobin 14.4 g/dL (13.5-17.5); Mean Corpuscular Hemoglobin 30.8 pg (28.0-32.0); Mean Corpuscular Hgb Conc. 34.7 g/dL (32.0-36.0); Mean Corpuscular Volume 88.7 fL (80.0-100.0); Monocytes # (auto) 0.5 10 ^3/uL (0-1.3); Monocytes % (auto) 8.8 % (0.0-12.0); Neutrophils # (auto) 3.5 10 ^3/uL (1.6-8.6); Neutrophils % (auto) 65.5 % (37.0-80.0); Red Blood Cells 4.67 10^6/uL (4.5-5.90); Red Cell Distribution Width 13.3 % (11.8-14.3); White Blood Cell 5.3 10^3/uL (4.4-10.8)
[2021-08-30 09:04] LABS: Potassium 4.8 mmol/L (3.5-5.1)
[2021-08-30 09:11] LABS: Albumin 3.6 g/dL (3.4-5.0); BUN/Creatinine Ratio 16.5; Bilirubin, Total 0.4 mg/dL (0.2-1.0); Calcium 8.9 mg/dL (8.5-10.1); Total Protein 6.7 g/dL (6.4-8.2)
[2021-08-30 09:16] LABS: INR 0.99 (0.9-1.15); Partial Thromboplastin Time 27.2 sec (23.6-33.0)
== END | disposition home or self-care (01) ==
LOC: LAB 08:12
PROVIDERS: ATTEND Specialist
DX: Z01.82 Encounter for allergy testing (principal); Z79.01 Long term (current) use of anticoagulants; H25.12 Age-related nuclear cataract, left eye
CPT/HCPCS: 36415; 80053; 81003; 85025; 85610; 85730

== ENCOUNTER → 2021-10-20 | Outpatient (CLI) | payer OTHER | END | disposition home or self-care (01) | LOC: LAB 16:10 | PROVIDERS: ATTEND Urology | DX: N40.1 Benign prostatic hyperplasia with lower urinary tract symptoms (principal) | CPT/HCPCS: 84153 ==

== ENCOUNTER → 2021-11-25 | Outpatient (CLI) | payer OTHER ==
[~2021-11-25] VITALS: Ht 167.6 cm; Wt 78.0 kg
[~2021-11-25] MED LIST changes: +ADENOSINE 66 MG in GIVE UN-DILUTED 0 ML IV ONE
== END | disposition home or self-care (01) ==
LOC: XYW 08:22
PROVIDERS: ATTEND Internal Medicine
DX: I25.119 Atherosclerotic heart disease of native coronary artery with unspecified angina pectoris (principal); I48.91 Unspecified atrial fibrillation; I70.0 Atherosclerosis of aorta; I25.708 Atherosclerosis of coronary artery bypass graft(s), unspecified, with other forms of angina pectoris; R07.89 Other chest pain; E11.9 Type 2 diabetes mellitus without complications; E78.5 Hyperlipidemia, unspecified; Z95.1 Presence of aortocoronary bypass graft; Z95.5 Presence of coronary angioplasty implant and graft
CPT/HCPCS: 78452; 93017; A9500; J0153

== ENCOUNTER → 2022-02-01 | Outpatient (CLI) | payer OTHER ==
[~2022-02-01] MED LIST changes: -ADENOSINE 66 MG in GIVE UN-DILUTED 0 ML IV ONE
[2022-02-01 07:40] LABS: Basophils # (auto) 0.1 10 ^3/uL (0-0.2); Basophils % (auto) 1.5 % (0.0-2.0); Eosinophils # (auto) 0.3 10 ^3/uL (0-0.8); Eosinophils % (auto) 4.8 % (0.0-7.0); Hematocrit 41.3 % (41.0-53.0); Hemoglobin 13.9 g/dL (13.5-17.5); Lymphocytes % (auto) 18.4 % (10.0-50.0); Mean Corpuscular Hemoglobin 29.7 pg (28.0-32.0); Mean Corpuscular Hgb Conc. 33.7 g/dL (32.0-36.0); Mean Corpuscular Volume 88.1 fL (80.0-100.0); Monocytes # (auto) 0.4 10 ^3/uL (0-1.3); Monocytes % (auto) 7.9 % (0.0-12.0); Neutrophils # (auto) 3.5 10 ^3/uL (1.6-8.6); Neutrophils % (auto) 67.4 % (37.0-80.0); Red Blood Cells 4.69 10^6/uL (4.5-5.90); Red Cell Distribution Width 13.5 % (11.8-14.3); White Blood Cell 5.3 10^3/uL (4.4-10.8)
[2022-02-01 08:05] LABS: Albumin 3.6 g/dL (3.4-5.0); Calcium 8.5 mg/dL (8.5-10.1); Potassium 4.2 mmol/L (3.5-5.1)
[2022-02-01 08:09] LABS: BUN/Creatinine Ratio 15.2; Bilirubin, Total 0.5 mg/dL (0.2-1.0); Total Protein 6.1 g/dL (6.4-8.2)
[2022-02-01 09:48] LABS: Free T4 (Free Thyroxine) 1.15 ng/dL (0.89-1.76); Prostate Specific Antigen 0.66 ng/mL (0.0-4.0)
== END | disposition home or self-care (01) ==
LOC: LAB 07:21
PROVIDERS: ATTEND Nurse Practitioner Family
DX: I25.810 Atherosclerosis of coronary artery bypass graft(s) without angina pectoris (principal); E11.9 Type 2 diabetes mellitus without complications
CPT/HCPCS: 36415; 80053; 80061; 83036; 84153; 84439; 84443; 85025

== ENCOUNTER 2022-03-07 07:56 | Day surgery (SDC) | payer OTHER ==
[2022-03-04 12:58] LABS: Basophils # (auto) 0.1 10 ^3/uL (0-0.2); Basophils % (auto) 0.8 % (0.0-2.0); Eosinophils # (auto) 0.3 10 ^3/uL (0-0.8); Eosinophils % (auto) 4.1 % (0.0-7.0); Hematocrit 42.2 % (41.0-53.0); Hemoglobin 14.6 g/dL (13.5-17.5); Lymphocytes # (auto) 1.4 10 ^3/uL (0.4-5.4); Lymphocytes % (auto) 18.2 % (10.0-50.0); Mean Corpuscular Hemoglobin 30.4 pg (28.0-32.0); Mean Corpuscular Hgb Conc. 34.7 g/dL (32.0-36.0); Mean Corpuscular Volume 87.7 fL (80.0-100.0); Monocytes # (auto) 0.6 10 ^3/uL (0-1.3); Monocytes % (auto) 8.1 % (0.0-12.0); Neutrophils # (auto) 5.3 10 ^3/uL (1.6-8.6); Neutrophils % (auto) 68.8 % (37.0-80.0); Red Blood Cells 4.82 10^6/uL (4.5-5.90); Red Cell Distribution Width 13.2 % (11.8-14.3); White Blood Cell 7.7 10^3/uL (4.4-10.8)
[2022-03-04 13:10] LABS: INR 0.92 (0.9-1.15); Partial Thromboplastin Time 27.9 sec (24.6-33.4)
[2022-03-04 13:12] LABS: Albumin 3.8 g/dL (3.4-5.0); BUN/Creatinine Ratio 12.1; Calcium 8.8 mg/dL (8.5-10.1); Potassium 4.1 mmol/L (3.5-5.1)
[2022-03-04 13:15] LABS: Bilirubin, Total 0.4 mg/dL (0.2-1.0)
[2022-03-07] VITALS (7 sets, daily range): BP systolic 124–156; BP diastolic 51–78
[~2022-03-07] VITALS: Ht 170.2 cm; Wt 78.5 kg
[~2022-03-07 07:56] MED LIST changes: +AMLO-496 PO; +CARI350T22 PO; -MET25T PO; +METO-158 PO; +OXYC325T14 PO; -PANT40T PO; +SILD50TA42 PO
[2022-03-07] MEDS ORDERED: ANGIOMAX 250 MG VIAL IV ONE (12:16)
[2022-03-07] MEDS ORDERED: HEPARIN SODIUM (PORCINE) 5000 UNITS/ML 1ML VIAL ONE (12:16)
[2022-03-07] MEDS ORDERED: VERAPAMIL 2.5MG/ML INJ 2ML VIAL IV ONE (12:16)
[2022-03-07] MEDS ORDERED: fentaNYL CITRATE 100 MCG/2 ML VL ONE (12:17)
[2022-03-07] MEDS ORDERED: LIDOCAINE 2%HCL (LOCAL ANESTH.) INJ 10ml MDV ONE (12:17)
[2022-03-07] MEDS ORDERED: SODIUM CHL 0.9% 0 ML ONE (12:17)
[2022-03-07] MEDS ORDERED: MIDAZOLAM HCL 2MG/2ML 2ml VIAL (1mg/ml) ONE (12:17)
[2022-03-07] MEDS ORDERED: IODIXANOL 320MG/ML 100ML BTL IV ONE ×2 (12:40→13:17)
== END 2022-03-07 16:55 | disposition home or self-care (01) ==
LOC: CATH 07:56
PROVIDERS: ATTEND Internal Medicine
DX: I25.10 Atherosclerotic heart disease of native coronary artery without angina pectoris (principal); R94.39 Abnormal result of other cardiovascular function study; I25.810 Atherosclerosis of coronary artery bypass graft(s) without angina pectoris; Z95.1 Presence of aortocoronary bypass graft; N40.0 Benign prostatic hyperplasia without lower urinary tract symptoms; Z20.822 Contact with and (suspected) exposure to COVID-19
CPT/HCPCS: 36415; 80053; 85025; 85610; 85730; 93459; C1769; C1887; C1894; J1644; J2001; J2250; J3010; J7030; Q9967; U0003; 99152; 99153

== ENCOUNTER → 2022-10-05 | Outpatient (CLI) | payer OTHER ==
[~2022-10-05] MED LIST changes: -AMLO-496 PO; +AMLO1TAB23 PO; -CARI350T22 PO; +CARI350T27 PO; -LISI-716 PO; +LISI10TA34 PO
== END | disposition home or self-care (01) ==
LOC: LAB 07:34
PROVIDERS: ATTEND Urology
DX: N40.1 Benign prostatic hyperplasia with lower urinary tract symptoms (principal)
CPT/HCPCS: 84153

== ENCOUNTER → 2023-01-18 | Outpatient (CLI) | payer OTHER ==
[2023-01-18 07:54] LABS: Basophils # (auto) 0 10 ^3/uL (0-0.2); Basophils % (auto) 0.8 % (0.0-2.0); Eosinophils # (auto) 0.2 10 ^3/uL (0-0.8); Eosinophils % (auto) 3.8 % (0.0-7.0); Hematocrit 43.8 % (41.0-53.0); Hemoglobin 14.6 g/dL (13.5-17.5); Lymphocytes # (auto) 1.1 10 ^3/uL (0.4-5.4); Lymphocytes % (auto) 17.9 % (10.0-50.0); Mean Corpuscular Hemoglobin 29.7 pg (28.0-32.0); Mean Corpuscular Hgb Conc. 33.3 g/dL (32.0-36.0); Mean Corpuscular Volume 89.3 fL (80.0-100.0); Monocytes # (auto) 0.6 10 ^3/uL (0-1.3); Monocytes % (auto) 9.3 % (0.0-12.0); Neutrophils # (auto) 4.4 10 ^3/uL (1.6-8.6); Neutrophils % (auto) 68.2 % (37.0-80.0); Nucleated Red Blood Cells % 0.1 %; Red Blood Cells 4.91 10^6/uL (4.5-5.90); Red Cell Distribution Width 13.7 % (11.8-14.3); White Blood Cell 6.4 10^3/uL (4.4-10.8)
[2023-01-18 07:57] LABS: Creatinine, Urine 101.55 mg/dL (30.0-125.0)
[2023-01-18 08:34] LABS: Alanine Aminotransferase 12 U/L (7-40); Albumin 4.3 g/dL (3.2-4.8); Alkaline Phosphatase 69 U/L (46-116); Aspartate Aminotransferase 9 U/L (13-40); BUN/Creatinine Ratio 12.9 (10.0-20.0); Bilirubin, Total 0.5 mg/dL (0.2-1.0); Blood Urea Nitrogen 17 mg/dL (9-23); Calcium 9.2 mg/dL (8.5-10.1); Carbon Dioxide 28 mmol/L (20-30); Cholesterol 141 mg/dL (< 200); Glucose 144 mg/dL (74-106); HDL Cholesterol 55 mg/dL (40-59); LDL Cholesterol 75 mg/dL (< 100); Total Protein 6.5 g/dL (5.7-8.2); Triglycerides 78 mg/dL (< 150)
[2023-01-18 09:03] LABS: Prostate Specific Antigen 0.71 ng/mL (0.0-4.0)
[2023-01-18 09:05] LABS: Anion Gap 6 (5-15); Chloride 108 mmol/L (98-107); Potassium 4.4 mmol/L (3.5-5.1); Sodium 142 mmol/L (136-145)
[2023-01-18 09:06] LABS: Free T4 (Free Thyroxine) 0.98 ng/dL (0.89-1.76)
== END | disposition home or self-care (01) ==
LOC: LAB 06:56
PROVIDERS: ATTEND Nurse Practitioner Family
DX: Z00.01 Encounter for general adult medical examination with abnormal findings (principal); E11.22 Type 2 diabetes mellitus with diabetic chronic kidney disease; I13.0 Hypertensive heart and chronic kidney disease with heart failure and stage 1 through stage 4 chronic kidney disease, or unspecified chronic kidney disease; R35.1 Nocturia
CPT/HCPCS: 36415; 80053; 80061; 82043; 82570; 83036; 84153; 84439; 84443; 85025

== ENCOUNTER 2023-11-08 21:21 | Inpatient (IN) | payer OTHER ==
[~2023-11-08] VITALS: Ht 182.9 cm; Wt 77.6 kg
[~2023-11-08 21:21] MED LIST changes: +CARI-578 PO; -CARI350T27 PO; +SILD50TA PO; -SILD50TA42 PO
[2023-11-08 23:37] VITALS: BP 160/73; PULSE 59; RESP 18; TEMP 98.4; O2SAT 99
[2023-11-09] VITALS (9 sets, daily range): BP systolic 113–152; BP diastolic 58–81; PULSE 55–65; RESP 16–20; TEMP 96.1–98.4; O2SAT 97–99
[2023-11-09 03:48] LABS: Basophils # (auto) 0 10 ^3/uL (0-0.2); Basophils % (auto) 0.8 % (0.0-2.0); Eosinophils # (auto) 0.2 10 ^3/uL (0-0.8); Eosinophils % (auto) 4.7 % (0.0-7.0); Hematocrit 43.5 % (41.0-53.0); Hemoglobin 14.9 g/dL (13.5-17.5); Lymphocytes # (auto) 1.1 10 ^3/uL (0.4-5.4); Lymphocytes % (auto) 20.9 % (10.0-50.0); Mean Corpuscular Hemoglobin 30.5 pg (28.0-32.0); Mean Corpuscular Hgb Conc. 34.3 g/dL (32.0-36.0); Mean Corpuscular Volume 88.9 fL (80.0-100.0); Monocytes # (auto) 0.6 10 ^3/uL (0-1.3); Monocytes % (auto) 10.8 % (0.0-12.0); Neutrophils # (auto) 3.2 10 ^3/uL (1.6-8.6); Neutrophils % (auto) 62.8 % (37.0-80.0); Nucleated Red Blood Cells % 0.1 %; Red Blood Cells 4.89 10^6/uL (4.5-5.90); Red Cell Distribution Width 13.3 % (11.8-14.3); White Blood Cell 5.1 10^3/uL (4.4-10.8)
[2023-11-09 04:05] LABS: Alanine Aminotransferase 11 U/L (7-40); Alkaline Phosphatase 71 U/L (46-116); Anion Gap 4 (5-15); Aspartate Aminotransferase < 8 U/L (13-40); Bilirubin, Total 0.4 mg/dL (0.2-1.0); Blood Urea Nitrogen 13 mg/dL (9-23); Calcium 9.5 mg/dL (8.5-10.1); Carbon Dioxide 28 mmol/L (20-30); Chloride 110 mmol/L (98-107); Glucose 102 mg/dL (74-106); Potassium 4.6 mmol/L (3.5-5.1); Sodium 142 mmol/L (136-145); Total Protein 6.1 g/dL (5.7-8.2)
[2023-11-09] MEDS ORDERED: MORPHINE SULFATE INJ 2 MG/ml SYRG IV PRN (05:30)
[2023-11-09] MEDS ORDERED: DEXTROSE (50%) 50ML SYRG IV PRN ×2 (05:30→13:45)
[2023-11-09] MEDS ORDERED: NITROGLYCERIN 0.4 MG SL TAB SL PRN (05:30)
[2023-11-09] MEDS ORDERED: ONDANSETRON HCL 4 MG/2 ML VIAL IV PRN (05:30)
[2023-11-09] MEDS ORDERED: ACETAMINOPHEN 325 MG TAB PO PRN (05:30)
[2023-11-09] MEDS: ACCU-CHEK COMFORT CURVE STRIP VI SCH ×2 (06:22→17:00)
[2023-11-09] MEDS: InsuLIN REG 1unit/0.01ml Soln (100units/ml) SC SCH ×3 (06:22→21:13)
[2023-11-09] MEDS: ASPirin 81 mg TAB PO SCH ×2 (08:57→14:10)
[2023-11-09] MEDS: ENOXAPARIN SOD 40 MG/0.4 ML SYRINGE SC SCH (09:00)
[2023-11-09] MEDS: METOPROLOL SUCCINATE XL 50 MG TAB PO SCH (09:00)
[2023-11-09] MEDS: amLODIPine BESYLATE 5 MG TAB PO SCH (09:01)
[2023-11-09] MEDS: CLOPIDOGREL BISULFATE 75 MG TAB PO ONE (09:01)
[2023-11-09] MEDS: PANTOPRAZOLE 40 MG/10 ML VIAL INJ IV ONE (10:00)
[2023-11-09] MEDS ORDERED: hydrALAZINE HCL 20 MG/ML VL IV ONE (12:15)
[2023-11-09 12:31] LABS: Urine Bacteria None Seen /hpf (None Seen)
[2023-11-09 12:42] LABS: LDL Cholesterol 72 mg/dL (< 100); Triglycerides 71 mg/dL (< 150)
[2023-11-09 12:44] LABS: Cholesterol 141 mg/dL (< 200); HDL Cholesterol 52 mg/dL (40-59)
[2023-11-09 12:50] LABS: Urine Blood Negative /uL (Negative); Urine Clarity Clear (Clear); Urine Color Light-Yellow (Yellow); Urine Protein, UAD Negative (Negative); Urine Specific Gravity 1.012 (1.001-1.035); Urine Urobilinogen Normal (Negative); Urine WBC <1 /hpf (0 - 3); Urine pH 5.5 (5.0-9.0)
[2023-11-09 12:59] LABS: Amphetamine Screen, Urine Neg (NEGATIVE); Barbiturate Scree,Urine Neg (NEGATIVE); Benzodiazephine Screen, Urine Neg (NEGATIVE); Cocaine Screen, Urine Neg (NEGATIVE); Opiate Scree,Urine Neg (NEGATIVE); Phencyclidine Screen, Urine Neg (NEGATIVE)
[2023-11-09 13:00] LABS: Cannabinoid Screen, Urine Neg (NEGATIVE)
[2023-11-09] MEDS: ATORVASTATIN 20 MG TAB PO SCH (21:09)
[2023-11-10 05:00] VITALS: BP 107/67; PULSE 82; RESP 18; TEMP 98.2; O2SAT 93
[2023-11-10 06:47] LABS: Anion Gap 5 (5-15); Calcium 9.4 mg/dL (8.5-10.1); Carbon Dioxide 26 mmol/L (20-30); Chloride 108 mmol/L (98-107); Potassium 4.2 mmol/L (3.5-5.1); Sodium 139 mmol/L (136-145)
[2023-11-10 06:53] LABS: BUN/Creatinine Ratio 17.5 (10.0-20.0); Blood Urea Nitrogen 20 mg/dL (9-23); Glucose 162 mg/dL (74-106)
[2023-11-10 09:00] VITALS: BP 145/58; PULSE 63; RESP 18; TEMP 97.4; O2SAT 95
[2023-11-10] MEDS ORDERED: PANTOPRAZOLE 40 MG/10 ML VIAL INJ IV SCH (10:00)
[2023-11-10] MEDS: CLOPIDOGREL BISULFATE 75 MG TAB PO SCH ×2 (11:25→23:12)
[2023-11-10 13:00] VITALS: BP 133/68; PULSE 56; RESP 17; TEMP 97.4; O2SAT 98
[2023-11-10] MEDS: FINASTERIDE 5 MG TAB PO ONE (13:42)
[2023-11-10 17:00] VITALS: BP 111/64; PULSE 56; RESP 17; TEMP 97.5; O2SAT 98
[2023-11-10 20:00] VITALS: RESP 18
[2023-11-10 21:00] VITALS: BP 127/66; PULSE 60; RESP 20; TEMP 97.5; O2SAT 95
[2023-11-11 01:00] VITALS: BP 147/84; PULSE 62; RESP 17; TEMP 97.8; O2SAT 96
[2023-11-11 05:00] VITALS: BP 167/78; PULSE 65; RESP 17; TEMP 97.5; O2SAT 97
[2023-11-11 06:35] LABS: Chloride 109 mmol/L (98-107); Potassium 4.1 mmol/L (3.5-5.1); Sodium 141 mmol/L (136-145)
[2023-11-11 06:36] LABS: Anion Gap 4 (5-15); Calcium 9.1 mg/dL (8.7-10.4); Carbon Dioxide 28 mmol/L (20-30)
[2023-11-11 06:41] LABS: BUN/Creatinine Ratio 15.9 (10.0-20.0); Blood Urea Nitrogen 17 mg/dL (9-23); Glucose 123 mg/dL (74-106)
[2023-11-11 08:30] VITALS: BP 158/82; PULSE 58; RESP 17; TEMP 97.7; O2SAT 98
[2023-11-11] MEDS: FINASTERIDE 5 MG TAB PO SCH (10:14)
[2023-11-11] MEDS ORDERED: ACET-1882 PO (11:36)
[2023-11-11] MEDS ORDERED: ATOR20TA50 PO (11:36)
[2023-11-11] MEDS ORDERED: CLOP75TA70 PO (11:36)
[2023-11-11 13:00] VITALS: BP 158/80; PULSE 57; RESP 19; TEMP 98; O2SAT 99
== END 2023-11-11 17:15 | disposition home health service (06) | DRG 65 ==
LOC: TELE-EAST 23:16 → EAST 11-10 04:22 → TELE-EAST 11-11 03:05
PROVIDERS: ADMIT Nurse Practitioner; ATTEND Nurse Practitioner
DX: I63.9 Cerebral infarction, unspecified (principal); G81.91 Hemiplegia, unspecified affecting right dominant side; I50.32 Chronic diastolic (congestive) heart failure; E78.5 Hyperlipidemia, unspecified; I25.10 Atherosclerotic heart disease of native coronary artery without angina pectoris; I11.0 Hypertensive heart disease with heart failure; E11.21 Type 2 diabetes mellitus with diabetic nephropathy; Z95.1 Presence of aortocoronary bypass graft; Z79.82 Long term (current) use of aspirin; Z79.899 Other long term (current) drug therapy; Z83.3 Family history of diabetes mellitus; Z80.1 Family history of malignant neoplasm of trachea, bronchus and lung
CPT/HCPCS: 36415; 70551; 80048; 80053; 80061; 80307; 81001; 82043; 82306; 82607; 82962; 83036; 84484; 85025; 87081; 92523; 92610; 93306; 93886; 97110; 97116; 97163; 97530; G0378; J1815; J2470

== ENCOUNTER → 2024-01-23 | Outpatient (CLI) | payer OTHER ==
[~2024-01-23] MED LIST changes: +ACET-1882 PO; +CLOP75TA70 PO; -SILD50TA PO
[2024-01-23 08:17] LABS: Basophils # (auto) 0 10 ^3/uL (0-0.2); Basophils % (auto) 0.7 % (0.0-2.0); Eosinophils # (auto) 0.2 10 ^3/uL (0-0.8); Eosinophils % (auto) 3.6 % (0.0-7.0); Hematocrit 42.2 % (41.0-53.0); Hemoglobin 14.8 g/dL (13.5-17.5); Lymphocytes # (auto) 0.9 10 ^3/uL (0.4-5.4); Lymphocytes % (auto) 15.6 % (10.0-50.0); Mean Corpuscular Hemoglobin 31.4 pg (28.0-32.0); Mean Corpuscular Hgb Conc. 35.1 g/dL (32.0-36.0); Mean Corpuscular Volume 89.4 fL (80.0-100.0); Monocytes # (auto) 0.5 10 ^3/uL (0-1.3); Monocytes % (auto) 9.4 % (0.0-12.0); Neutrophils # (auto) 4.1 10 ^3/uL (1.6-8.6); Neutrophils % (auto) 70.7 % (37.0-80.0); Nucleated Red Blood Cells % 0.1 %; Platelet Count (auto) 180 10^3/uL (140-450); Red Blood Cells 4.73 10^6/uL (4.5-5.90); Red Cell Distribution Width 13.3 % (11.8-14.3); White Blood Cell 5.8 10^3/uL (4.4-10.8)
[2024-01-23 08:50] LABS: Prostate Specific Antigen 0.52 ng/mL (0.0-4.0)
[2024-01-23 08:53] LABS: Alanine Aminotransferase 12 U/L (7-40); Albumin 4.2 g/dL (3.2-4.8); Alkaline Phosphatase 79 U/L (46-116); Anion Gap 7 (5-15); Aspartate Aminotransferase < 8 U/L (13-40); BUN/Creatinine Ratio 14.3 (10.0-20.0); Blood Urea Nitrogen 17 mg/dL (9-23); Calcium 9.6 mg/dL (8.7-10.4); Carbon Dioxide 29 mmol/L (20-30); Chloride 105 mmol/L (98-107); Cholesterol 129 mg/dL (< 200); Glucose 207 mg/dL (74-106); HDL Cholesterol 47 mg/dL (40-59); LDL Cholesterol 70 mg/dL (< 100); Potassium 4.1 mmol/L (3.5-5.1); Sodium 141 mmol/L (136-145); Triglycerides 93 mg/dL (< 150)
[2024-01-23 08:54] LABS: Bilirubin, Total 0.5 mg/dL (0.2-1.0); Total Protein 6.3 g/dL (5.7-8.2)
[2024-01-23 08:56] LABS: Free T4 (Free Thyroxine) 1.2 ng/dL (0.89-1.76)
[2024-01-23 09:14] LABS: Creatinine, Urine 79.53 mg/dL (30.0-125.0)
[2024-01-23 09:17] LABS: Micro Albumin < 3.0 mg/L (<30.0)
== END | disposition home or self-care (01) ==
LOC: LAB 07:46
PROVIDERS: ATTEND Nurse Practitioner Family
DX: E11.22 Type 2 diabetes mellitus with diabetic chronic kidney disease (principal); N18.31 Chronic kidney disease, stage 3a; I50.9 Heart failure, unspecified; R35.1 Nocturia
CPT/HCPCS: 36415; 80053; 80061; 82043; 82570; 83036; 84153; 84439; 84443; 85025

== ENCOUNTER → 2024-10-29 | Outpatient (CLI) | payer OTHER ==
[2024-10-29 08:58] LABS: Chloride 107 mmol/L (98-107); Potassium 4.2 mmol/L (3.5-5.1); Sodium 141 mmol/L (136-145)
[2024-10-29 08:59] LABS: Anion Gap 8 (5-15); Carbon Dioxide 26 mmol/L (20-31)
[2024-10-29 09:00] LABS: Calcium 9.7 mg/dL (8.7-10.4)
[2024-10-29 09:04] LABS: BUN/Creatinine Ratio 14.0 (10.0-20.0); Blood Urea Nitrogen 17 mg/dL (9-23)
[2024-10-29 09:05] LABS: Glucose 192 mg/dL (74-106)
[2024-10-29 09:21] LABS: Microalb/Creat Ratio, Urine 3.00
== END | disposition home or self-care (01) ==
LOC: LAB 08:08
PROVIDERS: ATTEND Nurse Practitioner Family
DX: E11.22 Type 2 diabetes mellitus with diabetic chronic kidney disease (principal); N18.9 Chronic kidney disease, unspecified
CPT/HCPCS: 36415; 80048; 82043; 82570

== ENCOUNTER 2025-01-29 07:44 | Outpatient (CLI) | payer OTHER ==
[2025-01-29 08:15] LABS: Hematocrit 44.3 % (41.0-53.0); Hemoglobin 15.3 g/dL (13.5-17.5); Mean Corpuscular Hemoglobin 30.4 pg (28.0-32.0); Mean Corpuscular Volume 88.0 fL (80.0-100.0); Nucleated Red Blood Cells % 0.1 %
[2025-01-29 08:50] LABS: Alkaline Phosphatase 78 U/L (46-116); Anion Gap 10 (5-15); BUN/Creatinine Ratio 12.5 (10.0-20.0); Blood Urea Nitrogen 15 mg/dL (9-23); Calcium 9.2 mg/dL (8.7-10.4); Carbon Dioxide 27 mmol/L (20-31); Chloride 105 mmol/L (98-107); Potassium 4.2 mmol/L (3.5-5.1); Sodium 142 mmol/L (136-145); Total Protein 6.7 g/dL (5.7-8.2); Triglycerides 75 mg/dL (< 150)
[2025-01-29 08:51] LABS: Albumin 4.3 g/dL (3.2-4.8); Bilirubin, Total 0.5 mg/dL (0.2-1.0); Cholesterol 135 mg/dL (< 200); HDL Cholesterol 49 mg/dL (40-59)
[2025-01-29 08:54] LABS: Alanine Aminotransferase 9 U/L (7-40); Glucose 137 mg/dL (74-106)
[2025-01-29 09:02] LABS: Microalb/Creat Ratio, Urine < 7.00
== END 2025-01-29 17:00 | disposition home or self-care (01) ==
LOC: LAB 07:44
PROVIDERS: ATTEND Nurse Practitioner Family
DX: I13.0 Hypertensive heart and chronic kidney disease with heart failure and stage 1 through stage 4 chronic kidney disease, or unspecified chronic kidney disease (principal); E11.22 Type 2 diabetes mellitus with diabetic chronic kidney disease; I50.9 Heart failure, unspecified; N18.9 Chronic kidney disease, unspecified; R35.1 Nocturia; Z00.01 Encounter for general adult medical examination with abnormal findings
CPT/HCPCS: 36415; 80053; 80061; 82043; 82570; 83036; 84153; 84443; 85025